=== PATIENT | female | born 1965 | race Caucasian/White ===

== ENCOUNTER 2016-12-10 07:40 | Day surgery (SDC) | payer OTHER ==
[2016-12-07 11:46] VITALS: BMI 39.5
[~2016-12-10 07:40] MED LIST: DEXAMETHASONE SOD PHOSPHATE 10 MG/ML 1 ML VIAL IV ONE; DEXAMETHASONE SOD PHOSPHATE 4 MG/ML 1 ML VIAL IV ONE; FAMOTIDINE 20 MG/2 ML VIAL IV ONE; LACTATED RINGERS 1,000 ML IV SCH; MIDAZOLAM 2 MG/2 ML VIAL IV PRN; ONDANSETRON 4 MG/2 ML VIAL IVP ONE
[2016-12-10] MEDS ORDERED: ACETAMINOPHEN TAB 500 MG TAB PO ONE (08:11)
[2016-12-10] MEDS: LACTATED RINGERS 1,000 ML IV SCH ×2 (08:12→14:52)
[2016-12-10] MEDS ORDERED: LIDOCAINE 1% 20 ML VIAL (10MG/ML) FOR IV START INTRADERMA ONE (08:12)
[2016-12-10] MEDS ORDERED: METHYLENE BLUE 10 MG/ML 1 ML VIAL MISCELLANE ONE (08:15)
[2016-12-10 08:24] LABS: Glucose,Whole Blood 115 mg/dL (75-99)
[2016-12-10 08:58] LABS: Basophils # (A) 0.1 k/uL (0-0.2); Basophils % (A) 1 %; CH 30.6; CHCM 33.1; Eosinophils # (A) 0.2 k/uL (0-0.7); Eosinophils % (A) 2 %; HCT 38.4 % (34.0-46.0); HDW 2.32; HGB 12.6 gm/dL (11.4-16.0); Luc # (Auto) 0.24; Luc % (Auto) 3; Lymphocytes # (A) 2.6 k/uL (1.0-4.8); Lymphocytes % (A) 32 %; MCH 30.3 pg (25.0-35.0); MCHC 32.7 g/dL (31.0-37.0); MCV 92.7 fL (80.0-100.0); Monocytes # (A) 0.5 k/uL (0-1.0); Monocytes % (A) 6 %; Neutrophils # (A) 4.6 k/uL (1.3-7.7); Neutrophils % (A) 57 %; RBC 4.14 m/uL (3.80-5.40); RDW 12.6 % (11.5-15.5); WBC 8.2 k/uL (3.8-10.6); WBC (Perox) 9.03
[2016-12-10 09:12] LABS: Potassium 3.8 mmol/L (3.5-5.1)
[2016-12-10] MEDS ORDERED: MIDAZOLAM 2 MG/2 ML VIAL ONE (09:23)
[2016-12-10] MEDS ORDERED: fentaNYL (PF) 50 MCG/ML 2 ML AMP ONE (09:23)
[2016-12-10] MEDS ORDERED: GLYCOPYRROLATE 0.2 MG/ML 2 ML VIAL ONE (09:23)
[2016-12-10] MEDS ORDERED: SUCCINYLCHOLINE CHLORIDE 100 MG/5 ML SYR IV ONE (09:23)
[2016-12-10] MEDS ORDERED: LIDOCAINE 1% INJ 10MG/ML (20 ML MDV) ONE (09:23)
[2016-12-10] MEDS ORDERED: LABETALOL 5 MG/ML VIAL MDV ONE (09:23)
[2016-12-10] MEDS ORDERED: DEXAMETHASONE SOD PHOS (MDV) 100 MG/10 ML VIAL ONE (09:23)
[2016-12-10] MEDS ORDERED: NEOSTIGMINE 1 MG/ML 10 ML VIAL ONE (09:23)
[2016-12-10] MEDS ORDERED: ALBUTEROL INHALER 60 PUFF/8 GM INHALER INHALATION ONE (09:23)
[2016-12-10] MEDS ORDERED: ePHEDrine 50 MG/ML 1 ML AMP ONE (09:23)
[2016-12-10] MEDS ORDERED: ROCURONIUM BROMIDE 10 MG/ML 10 ML VIAL IV ONE (09:23)
[2016-12-10] MEDS ORDERED: PROPOFOL 10 MG/ML 20 ML VIAL IV ONE (09:23)
[2016-12-10] MEDS ORDERED: cloNIDine HCL/PF 100 MCG in SODIUM CHLORIDE 0.9% 100 ML IVPB ONE (09:25)
[2016-12-10] MEDS ORDERED: SODIUM CHLORIDE 0.9% 50 ML with ceFAZolin 2,000 MG IV ONE ×2 (09:45)
[2016-12-10] MEDS ORDERED: BUPIVACAINE (PF) 0.25% 30 ML VIAL SQ ONE ×2 (10:12)
[2016-12-10] MEDS ORDERED: LIDOCAINE 1%-EPI 1:100,000 20 ML VIAL SQ ONE ×3 (10:12)
[2016-12-10] MEDS ORDERED: BACITRACIN 500 UNIT/GM OINT 28.4 GM TUBE TOPICAL ONE (11:11)
--- NOTE | 2016-12-10 11:48 | P.OP ---
Date of Procedure: 12/10/16 Preoperative Diagnosis: Deviated nasal septum Hypertrophy of bilateral inferior nasal turbinates Obstructive sleep apnea syndrome Tonsillar hyperplasia with obstruction Macroglossia the base of the tongue Postoperative Diagnosis: Same Procedure(s) Performed: Septoplasty Bilateral outfracture compression and submucosal resection of the inferior turbinates Uvulopalatopharyngoplasty Tonsillectomy CO2 laser vaporization of the base the tongue for macroglossia Anesthesia: CHESTER Surgeon: Mathew Barnes Pathology: other (Tonsils septum) Condition: stable Disposition: PACU Indications for Procedure: This patient has had persistent nasal obstruction obstructive sleep apnea syndrome and constant postnasal drainage. He is tried immunotherapy nasal sprays etc. with no improvement. She presents with persistent nasal obstruction large tonsils and a very redundant soft palate. She has failed CPAP and is intolerant to that treatment. Operative Findings: As above Description of Procedure: This patient was taken to the operative room and placed in the supine position. A general inhalation anesthetic was administered to the patient and subsequently intubated with a cuffed endotracheal tube by the department of anesthesia with a functioning IV line in place. The patient was monitored through the entire case by the department of anesthesia. Prep medication was administered Attention was paid to the nose where the septum and inferior turbinates were injected with lidocaine 1% with epinephrine 1 100,000. Approximately 10 minutes were allowed wait for full vasoconstrictive effects to take place. At this time, a caudal incision was made over the caudal portion of the left septum. This was made down to the mucoperichondrium were a mucoperichondrial flap was developed to the extent of visualization on the left. A crossover incision was made with for the mucoperichondrial flap development to the extent of visualization on the contralateral side. With use of several crosshatching incisions and removal of redundant strips of septal cartilage the septum was straightened and placed back in position. The septum was perfectly straight and the incision was closed with a 4 rapid Vicryl. A quilting stitch was used to reapproximate the septal flaps. The septum was sutured fixated to the vomer area and groove. In the incision was closed with 40 rapid Vicryl. Attention was then paid to the inferior turbinates which were entered anteriorly with the use of a microdebrider utilizing a 2 mm blade. We entered the inferior turbinates and we remove bone and submucosal elements from the inferior turbinates bilaterally. After submucosal resection was performed with removal of bone and submucosal elements ; the inferior turbinates were outfractured and compressed with use of a [employer] nasal elevator. Excellent airway was obtained.. A septal splint was then placed and fixated. A McIvor mouth gag was placed into the patients mouth with care to avoid any trauma to the lips, teeth, gums or tongue. Mouth was opened and tongue was depressed. The tonsils were grasped with an Allis forceps and brought medially bilaterally. A subcapsular dissection was performed utilizing an Evac-70 handpiece with an Arthrotec setting of 7. The tonsils were removed without incident bilaterally and the tonsillar fossae were inspected and bleeding was nonexistent and stopped spontaneously with Coblation. A Marcaine and lidocaine mixture was injected into the peritonsillar area for anesthesia postoperatively. The mouth was opened and tongue was depressed and the soft palate was measured. The uvula was extremely long and the soft palate was redundant. We removed the anterior face of the uvula and we remove the anterior inferior margin of the mucosa the soft palate. We sutured the posterior margin of the soft palate to the anterior portion of the soft palate with care to avoid any excessive soft palate resection. We measured the soft palate to prevent any velopharyngeal insufficiency. The soft palate looked excellent and after the uvulectomy and the lateral pharyngeal mucosa was removed in the usual fashion, the incision was closed with a 4 rapid Vicryl. Excellent approximation was obtained. Attention was then paid to the use of tongue which was visualized directly. With use of a sweetheart retractor the base of tongue was elevated and went to see the obstructive area of the base of tongue just above the epiglottis. We removed lymphoid tissue and tonsillar tissue at the base the tongue level with a CO2 Laser. This removal was done with care to avoid any trauma to the lingual nerve bilaterally. A significant amount of tissue was removed from the vallecula to the foramen cecum. Excellent results were obtained. The patient was taken to postanesthesia recovery in excellent condition The patient will follow up with me in one week as an outpatient.
[2016-12-10] MEDS: HYDROmorphone 1 MG/ML 1 ML SYRINGE IVP PRN ×2 (11:49→11:58)
[2016-12-10] MEDS ORDERED: PROMETHAZINE INJ 25 MG/ML 1 ML VIAL IM PRN (11:59)
[2016-12-10] MEDS ORDERED: METOCLOPRAMIDE 5 MG/ML 2 ML VIAL IVP ONE (12:15)
[2016-12-10] MEDS ORDERED: LIDOCAINE VISCOUS 2% 15 ML CUP MUCOUS MEM PRN (12:15)
[2016-12-10] MEDS: PANTOPRAZOLE 40 MG TABLET PO SCH ×2 (14:37→18:04)
[2016-12-10] MEDS ORDERED: DEXTROSE 5%-LACTATED RINGERS 1,000 ML IV SCH (15:30)
[2016-12-10] MEDS: methylPREDNISolone SOD SUCCI 125 MG/2 ML VIAL IV SCH (18:00)
[2016-12-10] MEDS: LIDOCAINE VISCOUS 300 MG/15 ML CUP MUCOUS MEM PRN ×2 (18:01→21:16)
[2016-12-10] MEDS: oxyCODONE-APAP 5-325MG 1 EACH TAB PO PRN (18:03)
[2016-12-10 18:14] VITALS: PULSE 78
[2016-12-11] MEDS: methylPREDNISolone SOD SUCCI 125 MG/2 ML VIAL IV SCH ×2 (00:04→06:27)
[2016-12-11] MEDS: oxyCODONE-APAP 5-325MG 1 EACH TAB PO PRN ×2 (00:05→06:27)
[2016-12-11] MEDS: LIDOCAINE VISCOUS 300 MG/15 ML CUP MUCOUS MEM PRN ×3 (00:13→06:32)
[2016-12-11 03:49] VITALS: BP 141/79; RESP 18; TEMP 98.1
== END 2016-12-11 07:45 | disposition home or self-care (01) ==
LOC: OR 07:40 → 6PED 11:32 → OR 12-11 07:45
PROVIDERS: ATTEND Otolaryngology
DX: J34.2 Deviated nasal septum (principal); J34.3 Hypertrophy of nasal turbinates; G47.33 Obstructive sleep apnea (adult) (pediatric); J35.1 Hypertrophy of tonsils; Q38.2 Macroglossia; R09.82 Postnasal drip; J32.9 Chronic sinusitis, unspecified; J45.909 Unspecified asthma, uncomplicated; F32.9 Major depressive disorder, single episode, unspecified; I10 Essential (primary) hypertension; E78.5 Hyperlipidemia, unspecified; E78.00 Pure hypercholesterolemia, unspecified; M79.7 Fibromyalgia; M19.90 Unspecified osteoarthritis, unspecified site; G43.909 Migraine, unspecified, not intractable, without status migrainosus; H40.9 Unspecified glaucoma; Z72.0 Tobacco use; Z79.891 Long term (current) use of opiate analgesic; Z79.2 Long term (current) use of antibiotics; Z79.52 Long term (current) use of systemic steroids; Z79.899 Other long term (current) drug therapy; Z88.8 Allergy status to other drugs, medicaments and biological substances; Z91.048 Other nonmedicinal substance allergy status
CPT/HCPCS: 30520; 30140; 42145; 41599; 88304; 80051; 85025; 88300; 88302; J2250; J2710; J2930 ×2; J2405; J2001; J3010; J1170; J0690; J1100; J0330; J2704; J0735

== ENCOUNTER → 2018-04-22 | Outpatient (CLI) | payer MEDICARE, OTHER ==
--- NOTE | 2018-04-22 14:40 | MR ---
EXAMINATION TYPE: MR knee LT wo con DATE OF EXAM: 04/22/2018 COMPARISON: Outside left knee x-ray March 31, 2018 HISTORY: Left knee pain with swelling and Limited ROM TECHNIQUE: Multiplanar, multisequence images of the knee is performed without IV contrast. FINDINGS: MEDIAL MENISCUS: Posterior horn shows increased signal signal inferiorly extending to inferior surfac e consistent with tear. Anterior horn is intact. LATERAL MENISCUS: Anterior and posterior horns are intact without tear. CRUCIATE LIGAMENTS: The anterior and posterior cruciate ligaments are intact and unremarkable. COLLATERAL LIGAMENTS: The medial collateral ligament and lateral collateral ligament complex are inta ct and unremarkable. EXTENSOR MECHANISM: Visualized quadriceps and patellar tendons are intact. EFFUSION: No significant suprapatellar joint effusion. POPLITEAL CYST: No popliteal/singh cyst. TRICOMPARTMENT SPACES: There is fairly moderate tricompartment joint space loss and spurring. CARTILAGE: There is some chondromalacia patella with thinning of articular cartilage along medial asp ect of the posterior patellar pole, areas of full-thickness defect are present medially with some carlos alberto ctive subchondral cystic change seen axial image 20. There is thinning of articular cartilage lateral into slightly greater degree medial tibiofemoral compartments without full-thickness loss. BONE MARROW SIGNAL: No focal abnormal marrow signal is appreciated. OTHER: No additional significant abnormality is appreciated. IMPRESSION: 1. Background fairly moderate tricompartment degenerative changes with full-thickness chondromalacia patella noted. 2. Full-thickness tear posterior horn of medial meniscus.
== END | disposition home or self-care (01) ==
LOC: RADMRIMAIN 13:55
PROVIDERS: ATTEND Orthopaedic Surgery
DX: S83.242A Other tear of medial meniscus, current injury, left knee, initial encounter (principal); M22.42 Chondromalacia patellae, left knee

== ENCOUNTER → 2018-05-12 | Outpatient (CLI) | payer MEDICARE, OTHER ==
--- NOTE | 2018-05-12 20:58 | CONS ---
CONSULTATION DATE OF SERVICE: 05/12/2018 52-year-old lady has been evaluated [facility] for obstructive sleep apnea- hypopnea syndrome. HISTORY OF PRESENT ILLNESS/SLEEP WAKE EVALUATION: Patient has been diagnosed with obstructive sleep apnea about 4 years ago by home sleep apnea test and after that underwent UPPP, tonsillectomy and nasal surgery for correction of respiratory abnormalities. The patient still continued to have snoring and episodes of stopped breathing during the sleep. SLEEP SCHEDULE: She sleeps from 11:00 p.m. to 9 or 10 am. FALLING ASLEEP: Has TV set in bedroom. DURING SLEEP: Usually sleeps on the side position or other positions, wakes up from sleep 2 or more times. Has episodes of nocturia. She is moving at night. She has discomfort in her legs during the night and sometimes she has a history of kicking and has history of bursitis. DURING THE DAY/SLEEP WAKE EVALUATION: In the morning she wakes up tired worries about her sleep, has problems with memory, concentration. [place] Sleepiness Scale today is 8. PAST MEDICAL HISTORY: Positive for hypertension, fibromyalgia, different types of allergy, back problems, neck pain, knee problems, sinusitis. PAST SURGICAL HISTORY: Neck surgery for disc problem in June 2016, UPPP and nasal surgery about 2015. MEDICATIONS: Lyrica, oxybutynin, Ditropan, Mobic, lisinopril, hydrochlorothiazide, Singulair, clindamycin, tramadol and eyedrops for eye infection. SOCIAL HISTORY: Positive for smoking about 1-1/2, 1 pack a day for 40 years. Alcohol consumption occasional. FAMILY HISTORY: Hypertension, heart problems, hyperlipidemia, stroke, fibromyalgia, sinus headaches, lung problems, sleep apnea, cancer, insomnia, diabetes, nasal polyps, ulcers, restless legs. REVIEW OF SYSTEMS: Awakenings from sleep, sometimes tiredness during the day. Patient may take naps if needed. PHYSICAL EXAMINATION: During physical exam, a 52-year-old lady without distress, BP 130/86, HR 68, RR 14, height 5 feet 5 inches and weight 236.6, BMI 38.6, temperature 98.3, oxygen saturation on room air 97%. Oropharynx moderately low position of soft palate, status post uvulopalatopharyngoplasty. ABDOMEN: Obese. Neck Supple, no JVD. Thyroid is not palpable. LUNGS Clear to percussion and to auscultation. Good air exchange. No wheezing or rhonchi. HEART S1, S2 regular. No murmurs, gallops, or rubs. ABDOMEN: Obese. Soft and nontender. Bowel sounds are present. No organomegaly appreciated. EXTREMITIES No clubbing or cyanosis. [employer] Awake, alert, and oriented X3. Cranial nerves 2 to 7 intact. There is no fasciculation or atrophy. noted. No focal deficits observed. IMPRESSION: 1. Snoring, multiple awakenings from sleep with nocturia. Wide neck 16-3/4 inches in circumference. Obstructive sleep apnea-hypopnea syndrome. 2. Obesity, BMI 38.63. 3. Hypertension. 4. Fibromyalgia. 5. Allergy. 6. History of rhinitis and sinusitis. 7. Back problems. 8. Neck pain. 9. Knee problems especially in the right knee at the present time. 10.Status post neck surgery in 2016. 11.Status post uvulopalatopharyngoplasty, tonsillectomy and nasal surgery in 2016. PLAN: 1. Polysomnography for evaluation of patient's breathing during sleep. 2. CPAP/BiPAP titration if sleep study confirms obstructive sleep apnea-hypopnea syndrome. 3. Preferable position during sleep on the side. 4. No driving if patient feels any sleepiness. 5. I will see patient for follow up visit to explain results of testing and following plan. Thank you very much for referring this patient for consultation. Sincerely, Nehemias Schmidt MD, PhD, FAASM Diplomat of [place] [employer] [place] [employer] [facility] [place] MMODL / IJN: [id number] /
== END | disposition home or self-care (01) ==
LOC: SLEEP 16:11
PROVIDERS: ATTEND Internal Medicine
DX: G47.33 Obstructive sleep apnea (adult) (pediatric) (principal); R35.1 Nocturia; I10 Essential (primary) hypertension; M79.7 Fibromyalgia; M25.861 Other specified joint disorders, right knee; M54.2 Cervicalgia; E66.9 Obesity, unspecified; Z79.1 Long term (current) use of non-steroidal anti-inflammatories (NSAID); Z79.891 Long term (current) use of opiate analgesic; Z79.899 Other long term (current) drug therapy; Z87.891 Personal history of nicotine dependence; Z98.890 Other specified postprocedural states; Z68.38 Body mass index [BMI] 38.0-38.9, adult; Z91.048 Other nonmedicinal substance allergy status; Z87.09 Personal history of other diseases of the respiratory system
CPT/HCPCS: 99211

== ENCOUNTER 2018-06-02 08:28 | Day surgery (SDC) | payer MEDICARE, OTHER ==
[2018-05-26 11:33] VITALS: BMI 21.7
--- NOTE | 2018-06-01 14:52 | HP ---
HISTORY AND PHYSICAL SURGERY: 06/02/2018. Shannon Borden is a 52-year-old patient seen with progressive left knee pain. Treatment options were discussed. She elected to proceed with left knee arthroscopy. Consent regarding the procedure was obtained. PAST MEDICAL HISTORY: Asthma, hypertension, hyperlipidemia, fibromyalgia, migraine headaches. PAST SURGICAL HISTORY: Carpal tunnel release, colonoscopy, hysterectomy, knee arthroscopy. MEDICATIONS: Bactroban, Ditropan, hydrochlorothiazide, lisinopril, Lyrica, meloxicam, nystatin, tramadol. ALLERGIES: ASPIRIN, MOTRIN. SOCIAL HISTORY: Patient smokes cigarettes. PHYSICAL EXAMINATION: Evaluation of the left knee: Range of motion is -2 to 125 degrees. Mild effusion. Tenderness medial joint line. Positive medial Babs's. Medial crepitus with range of motion. Ligaments stable. Hip rotation without pain. Distal neurovascular exam intact. RADIOGRAPHS: Left knee radiographs revealed moderate tricompartmental osteoarthritis. MRI of the left knee revealed medial meniscal tear with moderate osteoarthritis. IMPRESSION: 1. Internal derangement, left knee with medial meniscal tear. 2. Hypertension. 3. Fibromyalgia. 4. Asthma. 5. Hyperlipidemia. PLAN: Left knee arthroscopy with partial meniscectomy and debridement. MMODL / IJN: [id number] /
[~2018-06-02 08:28] MED LIST changes: -DEXAMETHASONE SOD PHOSPHATE 4 MG/ML 1 ML VIAL IV ONE; -FAMOTIDINE 20 MG/2 ML VIAL IV ONE; +LIDOCAINE 1% 20 ML VIAL (10MG/ML) FOR IV START INTRADERMA PRN; +SCOPOLAMINE 1.5MG/72HR PATCH TRANSDERM ONE; +ceFAZolin IN SWFI 2 GM/20 ML SYRINGE IVP ONE
[2018-06-02] MEDS ORDERED: BUPIVACAIN-EPI 0.5%-1:200,000 30 ML VIAL SQ ONE (09:36)
[2018-06-02] MEDS ORDERED: HYDROmorphone (PF) 1 MG/ML ONE (09:44)
[2018-06-02] MEDS ORDERED: LIDOCAINE 1% INJ 10MG/ML (20 ML MDV) ONE (09:44)
[2018-06-02] MEDS ORDERED: MIDAZOLAM 2 MG/2 ML VIAL ONE (09:44)
[2018-06-02] MEDS ORDERED: PROPOFOL 10 MG/ML 20 ML VIAL IV ONE (09:44)
[2018-06-02] MEDS ORDERED: fentaNYL (PF) 50 MCG/ML 2 ML AMP ONE (09:44)
[2018-06-02] MEDS ORDERED: SUCCINYLCHOLINE CHLORIDE 100 MG/5 ML SYR IV ONE (09:44)
[2018-06-02] MEDS: HYDROmorphone 0.5 MG/0.5 ML SYRINGE IVP PRN ×4 (10:43→11:16)
[2018-06-02 10:47] VITALS: TEMP 97
--- NOTE | 2018-06-02 10:50 | P.OP ---
Date of Procedure: 06/02/18 Preoperative Diagnosis: Internal derangement left knee Postoperative Diagnosis: 1. Tear medial and lateral meniscus left knee 2. Grade 4 chondromalacia medial femoral condyle left knee 3. Grade 4 chondromalacia lateral femoral condyle left knee 4. Grade 3/4 chondromalacia patellofemoral joint left knee 5. Reactive synovitis medial, lateral and suprapatellar compartments left knee Procedure(s) Performed: 1. Arthroscopic partial medial and lateral meniscectomy left knee 2. Arthroscopic microfracture medial femoral condyle left knee 3. Arthroscopic microfracture lateral femoral condyle left knee 4. Arthroscopic chondroplasty medial femoral condyle left knee 5. Arthroscopic chondroplasty lateral femoral condyle left knee 6. Arthroscopic chondroplasty patellofemoral joint left knee 7. Arthroscopic partial synovectomy medial, lateral and suprapatellar compartments left knee Anesthesia: CHESTER, local Surgeon: Naren Vann Estimated Blood Loss (ml): 10 Pathology: none sent Condition: stable Disposition: PACU Indications for Procedure: 52-year-old patient seen with progressive left knee pain. After having treatment options discussed, she elected to proceed with arthroscopy. Operative Findings: See description of procedure Description of Procedure: Patient was taken to the operative suite. Patient underwent a general anesthetic by the department of anesthesia. Patient was given preoperative antibiotics. The left lower extremity was placed in a well-padded arthroscopic leg [place]. The left leg was prepped and draped in the normal sterile orthopedic fashion. A lateral parapatellar and suprapatellar incision was made. Trochars were inserted. Arthroscopy was initiated. Suprapatellar pouch revealed diffuse thick reactive synovitis. The patellofemoral joint appeared to articulate congruently. There grade 3/4 chondromalacia of both the patella and femoral sulcus. There were osteochondral tears noted on both sides. The scope was guided into the medial gutter. No loose bodies or plica were identified. The scope was then guided into the medial compartment. A medial parapatellar incision was made. Trocar inserted followed by probe. There was complex tear involving the posterior horn and midbody medial meniscus. There is an area of grade 4 chondromalacia medial femoral condyle with some osteochondral tears along the periphery. There was thick reactive synovitis anteriorly. There was grade 3/4 chondromalacia changes of the tibial plateau. I performed a partial medial meniscectomy down to stable tissue. I performed a chondroplasty of the femoral condyle down to stable tissue. I performed a partial synovectomy decompressing the thick reactive synovitis. There was exposed bone medial femoral condyle. A microfracture was performed that area penetrating the bone. There was good bleeding at the microfracture site once it was completed. There was good stability about the residual meniscus. There was good decompression of the reactive synovitis. Scope and probe were then guided into the intercondylar notch. Cruciates were identified, probed and found to be stable. The scope and probe were then guided into lateral compartment. There was a tear involving the posterior horn and midbody lateral meniscus. There was an area of grade 4 chondral malacia lateral femoral condyle some exposed bone centrally. There was thick reactive synovitis anteriorly. I performed a partial lateral meniscectomy down to stable tissue. A chondroplasty of the lateral femoral condyle was performed on a stable tissue. I performed a partial synovectomy decompressing the reactive synovitis lateral compartment. There was an area of exposed bone along the weightbearing surface of the distal femoral condyle. A microfracture was performed that area penetrating the bone. There was good bleeding at the microfracture site for was completed. The residual meniscus was stable. The residual osteochondral surface was stable. There was good decompression of the reactive synovitis. The scope was in guided back into the suprapatellar compartment. I introduced a motorized shaver into the suprapatellar compartment. I debrided some piecemeal fragments of meniscus I encountered. I performed a chondroplasty of the patella and femoral sulcus getting down to stable osteochondral tissue. I performed a partial synovectomy decompressing the thick reactive synovitis within the super patellar compartment. The residual osteochondral surfaces were found to be stable. I took one more look on the entire knee, no residual debris. Instruments were now removed from the joint. The joint was infiltrated with .25% Marcaine. Steri-Strips were applied to the portal sites. Sterile dressings were applied. The patient was placed into a LUIS ALBERTO hose. No tourniquet was utilized. The patient was awakened, transferred to a bed and taken to recovery stable satisfactory condition.
[2018-06-02 10:56] VITALS: RESP 16
[2018-06-02] MEDS ORDERED: HYDROcodone/APAP 5-325MG 1 EACH TAB PO ONE (12:25)
[2018-06-02 12:46] VITALS: BP 126/78; PULSE 70
== END 2018-06-02 13:37 | disposition home or self-care (01) ==
LOC: OR 08:28
PROVIDERS: ATTEND Orthopaedic Surgery
DX: M23.322 Other meniscus derangements, posterior horn of medial meniscus, left knee (principal); M23.352 Other meniscus derangements, posterior horn of lateral meniscus, left knee; M65.88 Other synovitis and tenosynovitis, other site; M94.262 Chondromalacia, left knee; J45.909 Unspecified asthma, uncomplicated; I10 Essential (primary) hypertension; E78.5 Hyperlipidemia, unspecified; M79.7 Fibromyalgia; F17.210 Nicotine dependence, cigarettes, uncomplicated; Z88.6 Allergy status to analgesic agent; Z79.1 Long term (current) use of non-steroidal anti-inflammatories (NSAID); Z79.891 Long term (current) use of opiate analgesic; Z79.899 Other long term (current) drug therapy; Z90.710 Acquired absence of both cervix and uterus; Z98.1 Arthrodesis status
CPT/HCPCS: 29880; 29879; J2250; J1100; J2405; J2001; J3010; J1170 ×2; J0330; J2704; J0690

== ENCOUNTER → 2019-04-11 | Outpatient (CLI) | payer MEDICARE, OTHER ==
--- NOTE | 2019-04-11 09:51 | CT ---
EXAMINATION TYPE: CT sinus wo con DATE OF EXAM: 04/11/2019 COMPARISON: CT Sinuses October 13, 2016 HISTORY: Chronic sinusitis and left facial pressure, left nose is plugged with headaches and dysphas ia for long time, history of prior surgery. CT DLP: 578 mGycm. Automated Exposure Control for Dose Reduction was Utilized. TECHNIQUE: CT scan of the sinuses is performed without contrast, axial images are obtained, coronal r eformatted images are also reviewed. FINDINGS: The paranasal sinuses including the frontal, ethmoid, sphenoid, and maxillary sinuses bila terally are well-aerated without abnormal opacification. The ostiomeatal complex is patent on the ri ght there is significant antral mucosal thickening on the left causing occlusion coronal image 20. Ev idence of prior surgery noted. Visualized portion of mastoid air cells show no abnormal opacification. Left lens is now thinned sugg esting interval cataract surgery. IMPRESSION: The sinuses remain clear. New blockage of left ostiomeatal complex however is present cindy pite prior surgery.
--- NOTE | 2019-04-11 10:42 | FL ---
Barium swallow HISTORY: Dysphagia, chronic sinusitis and cough 67 images obtained, 2 minutes seconds fluoroscopy time Patient was given high density barium to drink. Patient was evaluated in frontal and lateral projecti ons. Initial swallow of the cervical esophagus shows postop changes in the cervical spine, there are facet arthropathy and hypertrophic spondylosis changes. Of note patient aspirated on initial swallow, ther e is laryngeal penetration present. Thoracic esophagus shows no extrinsic or intrinsic abnormality. S uspect a small sliding hiatal hernia. No gastroesophageal reflux. IMPRESSION: Mathew aspiration on initial swallow of the exam. Additional findings above.
== END | disposition home or self-care (01) ==
LOC: RADCTMAIN 08:47
PROVIDERS: ATTEND Otolaryngology
DX: R93.3 Abnormal findings on diagnostic imaging of other parts of digestive tract (principal); J34.89 Other specified disorders of nose and nasal sinuses; R13.10 Dysphagia, unspecified; R05 Cough; J32.9 Chronic sinusitis, unspecified; Z98.890 Other specified postprocedural states
CPT/HCPCS: 70486; 74220

== ENCOUNTER → 2019-04-17 | Outpatient (CLI) | payer MEDICARE, OTHER ==
--- NOTE | 2019-04-17 14:00 | FL ---
MODIFIED SWALLOW / DEGLUTITION STUDY DATE OF EXAM: 04/17/2019 CLINICAL HISTORY: 53-year-old female recent ACDF with sensation of solid food sticking in the throat. Dysphagia. TECHNIQUE: Deglutition study is performed utilizing thin liquid barium, honey and nectar thick liqui d barium, barium thick applesauce, and barium coated cracker. Total fluoroscopy time: 1 minute 9 seconds. Total images: None. Real-time fluoroscopy support was provided to speech pathology. COMPARISON: None. FINDINGS: The oral and pharyngeal phases show satisfactory initiation and propagation with all modalities teste d. Normal mastication is seen with solid modalities tested. Trace transient penetration is noted wi th thin and nectar liquid consistencies. Otherwise, there is no evidence of other penetration or aspi ration with any modality tested. No significant pharyngeal residue was appreciated. Postsurgical betsy nges of C4-C5 and C5-C6 ACDF. No prevertebral soft tissue swelling. IMPRESSION: Trace transient penetration with thin and nectar liquids. No other penetration or aspiration seen. Please refer to speech therapist notes for further details if necessary.
== END | disposition home or self-care (01) ==
LOC: RADFLMAIN 12:41
PROVIDERS: ATTEND Family Medicine
DX: R13.19 Other dysphagia (principal)
CPT/HCPCS: 74230

== ENCOUNTER → 2019-06-28 | Outpatient (CLI) | payer MEDICARE, OTHER | END | disposition home or self-care (01) | LOC: LABPAT 06-19 16:43 | PROVIDERS: ATTEND Orthopaedic Surgery | DX: Z01.812 Encounter for preprocedural laboratory examination (principal) | CPT/HCPCS: 87070 ==

== ENCOUNTER 2019-08-07 13:37 | Day surgery (SDC) | payer MEDICARE, OTHER ==
--- NOTE | 2019-08-06 17:47 | HP ---
HISTORY AND PHYSICAL REASON FOR ADMISSION: Surgery scheduled for 08/07/2019 HISTORY OF PRESENT ILLNESS: Shannon Borden is a 53-year-old patient seen with symptomatic left knee osteoarthritis. We discussed treatment options. She elected to proceed with total knee arthroplasty. Consent regarding the procedure was obtained. Full preoperative medical clearance was provided by Dr. Larkin and preoperative cardiac clearance was provided by Dr. Manzano. PAST MEDICAL HISTORY: Hypertension, cardiovascular disease, hyperlipidemia, COPD, depression. PAST SURGICAL HISTORY: Colonoscopy, D and C, hysterectomy, knee arthroscopy, rhinoplasty, cervical laminectomy, carpal tunnel release. MEDICATIONS: Fioricet, hydrochlorothiazide, lisinopril, Lyrica, meloxicam, nystatin, [place] Ventolin inhaler. ALLERGIES: ASPIRIN, MOTRIN. SOCIAL HISTORY: Smokes cigarettes daily. PHYSICAL EXAMINATION: Evaluation of the left knee: Range of motion is -4/5-115. Mild effusion. Tenderness medial joint line. Crepitus medial patellofemoral compartments range of motion. Pain with patellofemoral compression. Ligaments are stable. Hip rotation without pain. Distal neurovascular exam intact. RADIOGRAPHS: Radiographs of the left knee revealed moderate to severe medial and mild patellofemoral compartment osteoarthritis. IMPRESSION: 1. Left knee osteoarthritis. 2. Hypertension. 3. Fibromyalgia. 4. Chronic opioid use. 5. Tobacco use. PLAN: Left total knee arthroplasty. Surgery scheduled for 08/07/2019. MMODL / DREWN: [id number] /
[~2019-08-07 13:37] MED LIST changes: +ACETAMINOPHEN TAB 500 MG TAB PO ONE; -DEXAMETHASONE SOD PHOSPHATE 10 MG/ML 1 ML VIAL IV ONE; +HYDROmorphone 0.5 MG/0.5 ML SYRINGE IVP PRN; -LACTATED RINGERS 1,000 ML IV SCH; +MELOXICAM 7.5 MG TAB PO ONE; +METOCLOPRAMIDE 5 MG/ML 2 ML VIAL IVP PRN; +ROPIVACAINE 246.25 MG, EPINEPHrine 0.5 MG, KETOROLAC 30 MG, cloNIDine HCL/PF 80 MCG, WA... MISCELLANE ONE; -SCOPOLAMINE 1.5MG/72HR PATCH TRANSDERM ONE; +TRANEXAMIC ACID 1,000 MG in SODIUM CHLORIDE 0.9% 100 ML IVPB ONE; -ceFAZolin IN SWFI 2 GM/20 ML SYRINGE IVP ONE; +fentaNYL (PF) 50 MCG/ML 2 ML AMP IVP PRN
[2019-08-07] MEDS ORDERED: LIDOCAINE 1% 20 ML VIAL (10MG/ML) FOR IV START INTRADERMA ONE (14:12)
[2019-08-07] MEDS: LACTATED RINGERS 1,000 ML IV SCH ×2 (14:12→19:27)
[2019-08-07] MEDS ORDERED: PROPOFOL 10 MG/ML 20 ML VIAL IV ONE (15:16)
[2019-08-07] MEDS ORDERED: MIDAZOLAM 2 MG/2 ML VIAL ONE (15:16)
[2019-08-07] MEDS ORDERED: LIDOCAINE 1% INJ 10MG/ML (20 ML MDV) ONE (15:16)
[2019-08-07] MEDS ORDERED: fentaNYL (PF) 50 MCG/ML 2 ML AMP ONE (15:16)
[2019-08-07] MEDS ORDERED: PHENYLEPHRINE-0.9% NACL SYG 1 MG/10 ML SYRINGE ONE (15:16)
[2019-08-07] MEDS ORDERED: ePHEDrine SULFATE/0.9% NACL/PF 50 MG/5 ML SYRINGE IV ONE (15:16)
[2019-08-07] MEDS ORDERED: ceFAZolin 3,000 MG in SODIUM CHLORIDE 0.9% IRRIGATIO 3,000 ML IRRIGATION ONE (15:19)
[2019-08-07] MEDS ORDERED: LACTATED RINGERS 1,000 ML IV ONE (15:45)
[2019-08-07] MEDS ORDERED: ONDANSETRON 4 MG/2 ML VIAL IVP PRN (17:02)
[2019-08-07] MEDS ORDERED: HYDROmorphone 1 MG/ML 1 ML SYRINGE IVP PRN (17:02)
[2019-08-07] MEDS ORDERED: HYDROcodone/APAP 5-325MG 1 EACH TAB PO PRN (17:02)
[2019-08-07] MEDS ORDERED: HYDROmorphone 0.5 MG/0.5 ML SYRINGE IVP PRN ×2 (17:02)
[2019-08-07] MEDS ORDERED: NALOXONE 0.4 MG/ML 1 ML VIAL IV PRN (17:02)
--- NOTE | 2019-08-07 17:02 | P.OP ---
Date of Procedure: 08/07/19 Preoperative Diagnosis: Left knee osteoarthritis Postoperative Diagnosis: Left knee osteoarthritis Procedure(s) Performed: Left total knee arthroplasty Implants: 1. Depuy attune size 6 narrow left cruciate-retaining cemented femur 2. Depuy attune size 5 fixed bearing cemented tibial baseplate 3. Depuy attune size 6 fixed bearing cruciate retaining 5 mm polyethylene tibial insert 4. Depuy attune 38 mm all polyethylene cemented patella Anesthesia: regional (Adductor canal catheter), local, spinal Surgeon: Naren Vann Mail Clerk #1: Torrey Davis Estimated Blood Loss (ml): 25 Pathology: other (Bone) Condition: stable Disposition: PACU Indications for Procedure: 53-year-old patient seen with symptomatic left knee osteoarthritis. After treatment options were discussed with her, she elected to proceed with total knee arthroplasty. Operative Findings: See description of procedure Description of Procedure: Patient was taken to the operative suite after having an adductor canal catheter placed by the department of anesthesia for postoperative pain management. Patient underwent a spinal anesthetic by the department of anesthesia. Patient was given preoperative IV intake antibiotics and TXA. A well-padded tourniquet was placed about the left lower extremity. The lower extremity was then prepped and draped in the normal sterile orthopedic fashion. The extremity was elevated, a tourniquet was insufflated to 300. A standard anterior incision was made sharply through skin. Dissection was taken down through the subcutaneous soft tissues down to the extensor mechanism. A medial arthrotomy was performed, patella was everted and knee was flexed. There was advanced osteoarthritis noted. I introduced my distal intramedullary femoral drill. I then introduced the distal femoral cutting jig. Daniel FISCHER secured the cutting jig with 2 pins. I held retractors in position while Daniel FISCHER performed the distal femoral resection through the guide area we now removed her distal femoral cutting guide. We now placed our 4-in-1 femoral cutting block and positioned and it was secured with 2 pins by Daniel FISCHER while I held the block in position. The distal femoral finishing was now completed. A proximal tibial cutting guide was positioned. I held the guide in the appropriate position with both hands well Daniel FISCHER inserted stabilizing pins into the guide. Proximal tibial cut was made. We now placed a trial femoral component into position, along with an appropriate size tibial tray and insert. We now took the knee through range of motion and had full extension good flexion and good overall soft tissue balance noted. The patella was everted and stabilized with 2 towel clips held by Daniel FISCHER while I performed a flush with patellar quad tendon utilizing a fresh sawblade. We templated the patella, appropriate drill holes were made. An appropriate trial patella was positioned, knee was taken through full range of motion with the patella tracking very nicely. The trial patella was removed. Drill holes were made through the femoral component. All trial components were removed after marking off the appropriate rotation of the tibia. Retractors were now positioned along the proximal tibia. An appropriate keel punch was made with the appropriate size tibial guide by myself on Daniel FISCHER assisted by holding retractors. At this point appropriate size implants were chosen and opened. The joint was irrigated copiously with pulse lavage mechanical irrigation. The posterior capsule was infiltrated with local analgesic. The wound was irrigated with pulse lavage mechanical irrigation. We mixed antibiotic methylmethacrylate. We placed the knee into flexion. We placed multiple retractors assisted by Daniel FISCHER to expose the proximal tibia. Once the methyl methacrylate was ready, the tibial component was cemented into place removing any excess methylmethacrylate form by both myself and Daniel FISCHER. The femoral component was cemented into place removing the removing any excess methylmethacrylate performed by both myself and Daniel FISCHER. We then inserted the appropriate size polyethylene tibial insert. We made sure that it was locked into position. We took the knee into full extension, and then back in a flexion making sure we had removed any excess methylmethacrylate. The patellar component was then cemented down and secured with clamp. Excess methylmethacrylate removed. We kept the knee in full extension, patellar clamp in position until methylmethacrylate had hardened. Once it had hardened the patellar clamp was removed. The knee was taken through full range of motion. The patella tracked nicely. There was good soft tissue balancing. The tourniquet was now released. Additional hemostasis was achieved via electrocautery. A second gram of TXA was given. The wound again was irrigated with pulse lavage mechanical irrigation. The superficial soft tissues were infiltrated local analgesic. The extensor mechanism was repaired with Vicryl. We checked the repair with range of motion and it was stable. The subcutaneous soft tissues were repaired with Vicryl in layers. The skin was approximated with pernio/Dermabond. Sterile dressings were applied followed by loose web roll and Kenneth bandage. The patient was transferred to a bed, and taken to recovery in stable and satisfactory condition. Daniel FISCHER assisted with this complex procedure.
[2019-08-07] MEDS ORDERED: ROPIVACAINE 0.2%-NS ON-Q PUMP 1,090 MG, EMPTY PAIN BALL 1 EACH MISCELLANE PRN (17:17)
[2019-08-07 17:50] LABS: Glucose,Whole Blood 104 mg/dL (75-99)
--- NOTE | 2019-08-07 17:53 | XR ---
EXAMINATION TYPE: XR knee limited LT DATE OF EXAM: 08/07/2019 COMPARISON: NONE HISTORY: Postop TECHNIQUE: 2 views FINDINGS: There is left knee prosthesis. Components are in anatomic position. IMPRESSION: No complicating process seen.
[2019-08-07] MEDS ORDERED: ONDANSETRON 4 MG/2 ML VIAL IVP ONE (17:55)
[2019-08-07] MEDS ORDERED: METOCLOPRAMIDE 5 MG/ML 2 ML VIAL IVP ONE (17:55)
--- NOTE | 2019-08-07 19:33 | P.ANPRN ---
Procedure Note - Anesthesia - Nerve Block Performed Left Adductor Canal Infusion Time Out Performed: Yes Date of Procedure: 08/07/19 Procedure Start Time: 14:17 Procedure Stop Time: 14:39 Location of Patient Procedure: PreOp Indication: Acute Post-Operative Pain, Requested by Surgeon Sedation Type: Sedate with meaningful contact maintained Preparation: Sterile Prep, Sterile Dressing Position: Supine Catheter: Indwelling Needle Types: Pajunk Needle Gauge: 21 Ultrasound used to visualize needle placement: Yes Ultrasound used to observe medication spread: Yes Blood Aspirated: No Pain Paresthesia on Injection Noted: No Resistance on Injection: Normal Image Stored and Saved: Yes Events: Uneventful and Well Tolerated (ropi .5% 20cc)
[2019-08-07] MEDS ORDERED: SENNOSIDES-DOCUSATE SODIUM 1 EACH TAB PO SCH (21:00)
[2019-08-07 23:05] VITALS: RESP 16
[2019-08-07 23:55] VITALS: BMI 38.8
[2019-08-08] MEDS: LACTATED RINGERS 1,000 ML IV SCH ×2 (05:15→05:30)
[2019-08-08 06:49] LABS: Basophils # (A) 0.1 k/uL (0-0.2); Basophils % (A) 1 %; Eosinophils # (A) 0.1 k/uL (0-0.7); Eosinophils % (A) 1 %; HCT 34.4 % (34.0-46.0); HGB 11.1 gm/dL (11.4-16.0); Lymphocytes # (A) 1.5 k/uL (1.0-4.8); Lymphocytes % (A) 18 %; MCH 30.5 pg (25.0-35.0); MCHC 32.2 g/dL (31.0-37.0); MCV 94.9 fL (80.0-100.0); Mean Platelet Volume 6.9; Monocytes # (A) 0.5 k/uL (0-1.0); Monocytes % (A) 6 %; Neutrophils % (A) 72 %; Platelet Count 282 k/uL (150-450); RBC 3.62 m/uL (3.80-5.40); RDW 12.7 % (11.5-15.5); WBC 8.3 k/uL (3.8-10.6)
--- NOTE | 2019-08-08 07:38 | P.PN ---
Progress Note - Text 08/08 655am 53-year-old female status post total knee replacement by Dr. Vann. Patient has an On-Q pump for postop pain control with the solution running at 8 mL an hour. She has a VAS of 5 but most for pain is located posteriorly. I did explain to the patient that the pain pump worked better for anterior Knee pain and did not cover the posterior portion of the knee. Plan to continue On-Q pump infusion
[2019-08-08 08:05] VITALS: BP 162/92; PULSE 93; TEMP 100.2
[2019-08-08] MEDS: HYDROcodone/APAP 7.5-325MG 1 EACH TAB PO PRN ×2 (08:06→14:11)
[2019-08-08] MEDS ORDERED: ENOXAPARIN 30 MG/0.3 ML SYRINGE SQ SCH (09:00)
[2019-08-08] MEDS ORDERED: MELOXICAM 7.5 MG TAB PO SCH (09:00)
--- NOTE | 2019-08-08 11:03 | P.PN ---
Subjective Progress Note Date: 08/08/19 Principal diagnosis: Status post left total knee arthroplasty Patient evaluated at bedside, she is resting comfortably. She's ambulated with therapy. She is tolerating the pain. Denies chest pain or shortness of breath. Objective - Vital Signs Vital signs: Vital Signs Temp 100.2 F H 08/08/19 07:05 Pulse 93 08/08/19 07:05 Resp 16 08/08/19 07:05 BP 162/92 08/08/19 07:05 Pulse Ox 95 08/08/19 07:05 Intake & Output 08/07/19 08/08/19 08/08/19 18:59 06:59 18:59 Intake Total 1950 300 180 Output Total 25 Balance 1925 300 180 Intake: IV 1950 300 Oral 180 Output: Estimated Blood Loss 25 Other: # Voids 1 - Exam Left lower extremity: Incision is clean, dry, and intact. The exofin fusion tape is in good condition. There is minimal soft tissue swelling and ecchymosis surrounding the medial and lateral aspects of the incision. Calf is soft, no tenderness with palpation. Plantar flexion, dorsiflexion, EHL, FHL are intact. Sensory exam to light touch throughout the extremity is intact, dorsal pedis pulses 2+. - Labs CBC & Chem 7: 08/08/19 06:12 Labs: Abnormal Lab Results - Last 24 Hours (Table) 08/07/19 08/08/19 Range/Units 17:49 06:12 RBC 3.62 L (3.80-5.40) m/uL Hgb 11.1 L (11.4-16.0) gm/dL POC Glucose (mg/dL) 104 H (75-99) mg/dL Assessment and Plan Plan: Assessment: Postoperative day #1 status post left total knee arthroplasty Plan: Pain control, patient does see a pain management doctor, she is alert he been prescribed medication GI and DVT prophylaxis, aspirin 81 mg twice a day Wound care instructions discussed Home physical therapy and nursing after discharge Medical recommendations Plan for discharge home today Time with Patient: Less than 30
--- NOTE | 2019-08-08 11:04 | P.DS ---
Providers Date of admission: 08/07/2019 Expected date of discharge: 08/08/19 Attending physician: Naren Vann Consults: 08/07/19 17:02 Consult Physician Routine Consulting Provider: Herman Kumar Consult Reason/Comments: Medical management Do you want consulting provider notified?: Yes Primary care physician: [facility] Course: Date of admission: 08/07/2019 Date of discharge: 08/08/2019 Admission diagnosis: Status post left total knee arthroplasty Discharge diagnosis: Same Attending physician: Dr. Vann Surgical procedures: Left total knee arthroplasty Brief history: Patient is a 53-year-old female with a history of progressive primary left knee osteoarthritis. At this point patient has failed conservative treatment measures and has opted to proceed with a elective left total knee arthroplasty. Hospital course: Details of patient's surgery can be found in operative report. Patient tolerated the procedure well and was subsequently transported to orthopedic floor. Patient's orthopeidc and medical care was provided daily. Patient had daily laboratory tests performed for evaluation of overall blood counts. Patient had daily physical therapy to include strengthening range of motion as well as education with walker ambulation. Patient had daily CPM usage as part of their physical therapy program. Patient was treated with Lovenox for their postoperative DVT prophylaxis during their inpatient stay. Patient was noted to have a relatively uneventful postoperative course. Patient reported satisfactory pain control with oral pain medications by postoperative day 0. Patient showed satisfactory progress with physical therapy. Patient moved steadily through the program and had no difficulty meeting the goals by postoperative day 1. Given patient's otherwise satisfactory course and having met physical therapy goals, plan is to discharge patient to home on postoperative day 1. Discharge condition/disposition: Patient will be discharged home in stable condition. Discharge medications: Instructions are given on resumption of patient's normal daily medications per primary care recommendation, in addition patient will be prescribed aspirin 81 mg. Discharge instructions: 1. Wound care and infection precautions, keep incision dry and covered while showering, no lotions, creams, moisturizers. No soaking, tubs, pools, hottubs. Do not scrub over the incision. 2. Weight-bear as tolerated with walker / cane until follow-up. 3. Ice and elevate when necessary. Do not exceed 20 minutes per hour with ice pack. 4. Utilize compression sleeve until seen at first follow up appointment. 5. Visiting nursing care. 6. Home physical therapy including home CPM. 7. Pain meds and anticoagulants per prescription. 8. Pain medication has potential to cause constipation. Increase oral fluid and fiber intake. Contact primary care provider if you have not had a bowel movement within 48 hours after discharge 9. No anti-inflammatory medication until discussed at first post operative visit, this including Motrin, Aleve, Mobic, Diclofenac. 10. Follow up in office at 2 weeks postop with Daniel Davis PA-C 11. Follow up with your primary care doctor 7-10 days after discharge. 12. Contact [facility] with any questions, . Procedures: Left total knee arthroplasty Patient Condition at Discharge: Good Plan - Discharge Summary Discharge Rx Participant: No New Discharge Prescriptions: New Aspirin [Adult Low Dose Aspirin EC] 81 mg PO BID #60 tablet.dr Foy Action Pregabalin [Lyrica] 100 mg PO BID Montelukast [Singulair] 10 mg PO QAM Hydrochlorothiazide 25 mg PO DAILY Albuterol Inhaler [Ventolin Hfa Inhaler] 1 - 2 puff INHALATION Q6HR PRN PRN Reason: Wheezing traMADol HCl [Ultram] 50 mg PO DAILY Meloxicam [Mobic] 15 mg PO DAILY Nystatin 100,000 Unit/gm Powd [Mycostatin Powder] 1 applic TOPICAL DAILY Mupirocin 2% Oint [Bactroban 2% Oint] 1 applic TOPICAL BID PRN PRN Reason: nasal irritation HYDROcodone/APAP 5-325MG [[place] 5-325] 1 tab PO DAILY PRN PRN Reason: Pain Azelastine HCl [Astepro] 1 spray NASAL BID PRN PRN Reason: allergies Cetirizine HCl [Zyrtec] 10 mg PO HS Triamcinolone Acetonide [Nasacort] 1 spray EA NOSTRIL DAILY Olopatadine HCl [Pataday] 1 drop BOTH EYES DAILY Butalb/APAP/Caff 50-325-40Mg [Fioricet 50-325-40] 1 tab PO Q4H PRN PRN Reason: Migraine Headache Irbesartan [Avapro] 75 mg PO DAILY Fesoterodine Fumarate [Toviaz] 8 mg PO DAILY Cyclobenzaprine [Flexeril] 5 mg PO DAILY PRN PRN Reason: Pain Nicotine Patch (Unknown Dose) 1 tab PO DAILY Mucinex Cough And Chest 1 tab PO TID Calcium/Magnesium/Zinc [Ryrrbeq-Ofvhnodok-Xbee Tablet] 1 each PO DAILY Allergy Shots 1 dose SQ DIRECTED Discharge Medication List Hydrochlorothiazide 25 mg PO DAILY 02/18/15 [History] Montelukast [Singulair] 10 mg PO QAM 02/18/15 [History] Pregabalin [Lyrica] 100 mg PO BID 02/18/15 [History] Albuterol Inhaler [Ventolin Hfa Inhaler] 1 - 2 puff INHALATION Q6HR PRN 12/07/16 [History] Meloxicam [Mobic] 15 mg PO DAILY 12/07/16 [History] traMADol HCl [Ultram] 50 mg PO DAILY 12/07/16 [History] Azelastine HCl [Astepro] 1 spray NASAL BID PRN 05/26/18 [History] Cetirizine HCl [Zyrtec] 10 mg PO HS 05/26/18 [History] HYDROcodone/APAP 5-325MG [[place] 5-325] 1 tab PO DAILY PRN 05/26/18 [History] Mupirocin 2% Oint [Bactroban 2% Oint] 1 applic TOPICAL BID PRN 05/26/18 [History] Nystatin 100,000 Unit/gm Powd [Mycostatin Powder] 1 applic TOPICAL DAILY 05/26/18 [History] Olopatadine HCl [Pataday] 1 drop BOTH EYES DAILY 05/26/18 [History] Triamcinolone Acetonide [Nasacort] 1 spray EA NOSTRIL DAILY 05/26/18 [History] Allergy Shots 1 dose SQ DIRECTED 08/03/19 [History] Butalb/APAP/Caff 50-325-40Mg [Fioricet 50-325-40] 1 tab PO Q4H PRN 08/03/19 [History] Calcium/Magnesium/Zinc [Ehzogmh-Rgsrmojii-Zlgi Tablet] 1 each PO DAILY 08/03/19 [History] Cyclobenzaprine [Flexeril] 5 mg PO DAILY PRN 08/03/19 [History] Fesoterodine Fumarate [Toviaz] 8 mg PO DAILY 08/03/19 [History] Irbesartan [Avapro] 75 mg PO DAILY 08/03/19 [History] Mucinex Cough And Chest 1 tab PO TID 08/03/19 [History] Nicotine Patch (Unknown Dose) 1 tab PO DAILY 08/03/19 [History] Aspirin [Adult Low Dose Aspirin EC] 81 mg PO BID #60 tablet. 08/08/19 [Rx] Follow up Appointment(s)/Referral(s): [facility] [NON-STAFF] - As Needed (Continuous Passive Motion knee machine) [facility], [NON-STAFF] - As Needed Torrey Davis PAC [PHYSICIAN OIL WELL SHOOTER] - 2 Weeks Activity/Diet/Wound Care/Special Instructions: Orthopedic Discharge Instructions: 1. Wound care and infection precautions, keep incision dry and covered while showering, no lotions, creams, moisturizers. No soaking, pools, hot tubs. Do not scrub over incision. 2. Weight-bear as tolerated with walker / cane until follow-up. 3. Ice and elevate when necessary. Do not exceed 20 minutes per hour with ice pack. 4. Utilize compression sleeve until seen at first follow up appointment. 5. Pain meds and anticoagulants per prescription. 6. Pain medication has potential to cause constipation. Increase oral fluid and fiber intake. Contact primary care provider if you have not had a bowel movement within 48 hours after discharge. 7. No anti-inflammatory medication until discussed at first post operative visit, this including Motrin, Aleve, Mobic, Diclofenac. 8. Follow up in office at 2 weeks postop with Daniel Davis PA-C 9. Follow up with your primary care doctor 7-10 days after discharge. 10. Contact [facility] with any questions, . Discharge Disposition: HOME WITH HOME HEALTH SERVICES
[2019-08-08] MEDS ORDERED: ALBUTEROL NEBULIZED 2.5 MG/3 ML INHALATION PRN (11:11)
[2019-08-08] MEDS ORDERED: CYCLOBENZAPRINE 5 MG TAB PO PRN (11:11)
[2019-08-08] MEDS ORDERED: AZELASTINE 137MCG/SPRAY NASAL PRN (11:11)
[2019-08-08] MEDS ORDERED: ACETAMINOPHEN TAB 500 MG TAB PO PRN (11:14)
[2019-08-08] MEDS ORDERED: LOSARTAN 25 MG TAB PO SCH (11:15)
[2019-08-08] MEDS ORDERED: MONTELUKAST 10 MG TAB PO SCH (11:15)
[2019-08-08] MEDS ORDERED: PREGABALIN 100 MG CAP PO SCH (11:15)
[2019-08-08] MEDS ORDERED: HYDROCHLOROTHIAZIDE 25 MG TAB PO SCH (11:15)
[2019-08-08] MEDS ORDERED: LORATADINE 10 MG TAB PO SCH (21:00)
== END 2019-08-08 15:16 | disposition home health service (06) ==
LOC: OR 13:37 → 4SSUR 18:32 → OR 08-08 15:16
PROVIDERS: ATTEND Orthopaedic Surgery
DX: M17.12 Unilateral primary osteoarthritis, left knee (principal); E78.5 Hyperlipidemia, unspecified; E66.9 Obesity, unspecified; Z68.38 Body mass index [BMI] 38.0-38.9, adult; I10 Essential (primary) hypertension; R73.03 Prediabetes; F41.9 Anxiety disorder, unspecified; G47.33 Obstructive sleep apnea (adult) (pediatric); M79.7 Fibromyalgia; I25.10 Atherosclerotic heart disease of native coronary artery without angina pectoris; J44.9 Chronic obstructive pulmonary disease, unspecified; F32.9 Major depressive disorder, single episode, unspecified; M51.36 Other intervertebral disc degeneration, lumbar region; F17.210 Nicotine dependence, cigarettes, uncomplicated; Z90.710 Acquired absence of both cervix and uterus; Z82.49 Family history of ischemic heart disease and other diseases of the circulatory system; Z82.3 Family history of stroke; Z80.3 Family history of malignant neoplasm of breast; Z79.1 Long term (current) use of non-steroidal anti-inflammatories (NSAID); Z79.891 Long term (current) use of opiate analgesic; Z79.899 Other long term (current) drug therapy; Z88.6 Allergy status to analgesic agent; Z91.018 Allergy to other foods; Z91.013 Allergy to seafood; Z88.8 Allergy status to other drugs, medicaments and biological substances; Z91.048 Other nonmedicinal substance allergy status
CPT/HCPCS: 97161; 85025; 88300; 73560; 27447; C1776; C1713; J2250; J0171; J2765; J0690 ×3; J2405; J2001; J3010; J1885; J1650; J2795; J2370; J2704; J0735

== ENCOUNTER → 2020-04-11 | Outpatient (CLI) | payer MEDICARE, OTHER ==
--- NOTE | 2020-04-11 15:59 | MR ---
EXAMINATION TYPE: MR shoulder LT wo con DATE OF EXAM: 04/11/2020 COMPARISON: None HISTORY: 54-year-old female M25.512 Pain in left shoulder, loss of range of motion TECHNIQUE: Multiplanar, multisequence imaging of the left shoulder is performed without contrast. FINDINGS: Mild tenosynovial fluid along the bicipital groove. Long head biceps tendon appears intact and approp riately situated. Some minimal intrasubstance change within the subscapularis tendon which appears mildly heterogeneous and thickened. Moderate degenerative joint space narrowing with marginal spurring at the acromioclavicular joint. No significant mass effect onto the underlying cuff. Mild to moderate effusion within the subacromial/subdeltoid bursa extending anteriorly. Heterogeneous thickening of the supraspinatus tendon with some bursal sided fraying. No discrete tear is identified. The infraspinatus tendon is intact. No atrophy of the rotator cuff musculature. Evaluation of the glenohumeral joint shows multiple paralabral cysts along the posterior-superior gle noid extending from behind the biceps anchor to the mid posterior labrum spanning 2.3 cm and measurin g up to 1.0 cm wide with some intraosseous extension to the superior glenoid, refer to coronal image 14. No significant glenohumeral joint effusion. Overall glenohumeral joint articular cartilage appears ma intained. No Hill-Sachs deformity or os acromiale. Patchy red marrow can be seen with anemia, obesity, smoking, chronic disease. IMPRESSION: 1. Supraspinatus and subscapularis tendinosis. Bursal sided fraying of the supraspinatus tendon. Smal l intrasubstance tear of the subscapularis tendon. No high-grade partial or full-thickness rotator cu ff tear. 2. Large labral tear extending 90 degrees back from behind the biceps anchor with a corresponding str ing of small paralabral cysts. 3. Moderate AC joint OA. 4. Ppezo-ut-goertgsl subacromial/subdeltoid bursal effusion suggests a mild bursitis.
== END | disposition home or self-care (01) ==
LOC: RADMRIMAIN 13:54
PROVIDERS: ATTEND Orthopaedic Surgery
DX: M75.82 Other shoulder lesions, left shoulder (principal); S46.912A Strain of unspecified muscle, fascia and tendon at shoulder and upper arm level, left arm, initial encounter; S43.492A Other sprain of left shoulder joint, initial encounter; M19.012 Primary osteoarthritis, left shoulder

== ENCOUNTER → 2020-05-09 | Outpatient (CLI) | payer MEDICARE, OTHER ==
[2020-05-09 15:14] LABS: Basophils # (A) 0.1 k/uL (0-0.2); Basophils % (A) 1 %; Eosinophils # (A) 0.2 k/uL (0-0.7); Eosinophils % (A) 2 %; HCT 40.4 % (34.0-46.0); HGB 13.3 gm/dL (11.4-16.0); Lymphocytes # (A) 2.4 k/uL (1.0-4.8); Lymphocytes % (A) 30 %; MCH 31.3 pg (25.0-35.0); MCHC 32.9 g/dL (31.0-37.0); MCV 95.1 fL (80.0-100.0); Mean Platelet Volume 7.7; Monocytes # (A) 0.4 k/uL (0-1.0); Monocytes % (A) 5 %; Neutrophils # (A) 4.6 k/uL (1.3-7.7); Neutrophils % (A) 59 %; Platelet Count 331 k/uL (150-450); RBC 4.25 m/uL (3.80-5.40); RDW 12.7 % (11.5-15.5); WBC 7.8 k/uL (3.8-10.6)
[2020-05-09 15:22] LABS: Potassium 4.3 mmol/L (3.5-5.1)
== END | disposition home or self-care (01) ==
LOC: LABPAT 14:05
PROVIDERS: ATTEND Orthopaedic Surgery
DX: Z01.818 Encounter for other preprocedural examination (principal); M75.42 Impingement syndrome of left shoulder
CPT/HCPCS: 36415; 80051; 85025

== ENCOUNTER 2020-05-22 07:36 | Day surgery (SDC) | payer MEDICARE, OTHER ==
[2020-05-20 09:46] VITALS: BMI 39.5
--- NOTE | 2020-05-21 15:03 | HP ---
HISTORY AND PHYSICAL DATE OF SURGERY: 05/22/2020 Shannon Borden is a 54-year-old patient seen with progressive left shoulder pain. We discussed options for treatment. She elected to proceed with arthroscopy. Consent was obtained. PAST MEDICAL HISTORY: Asthma, hypertension, depression, fibromyalgia. PAST SURGICAL HISTORY: Carpal tunnel release, hysterectomy, knee arthroscopy, rhinoplasty, cervical laminectomy, left total knee arthroplasty. DAILY MEDICATIONS: Hydrochlorothiazide, lisinopril, Lyrica, tramadol, Ventolin, ibuprofen. ALLERGIES: ASPIRIN. SOCIAL HISTORY: Smokes 3/4 pack cigarettes daily. PHYSICAL EVALUATION OF THE LEFT SHOULDER: Flexion 110 degrees, abduction 100 degrees, external rotation is 50 degrees with pain and weakness. There is tenderness along the anterolateral acromion and rotator cuff insertion site. Impingement is positive at 90, drop-arm sign is positive. Distal neurovascular exam is intact. LEFT SHOULDER RADIOGRAPHS: Revealed a type 2 anterior acromion as well as evidence for acromioclavicular joint osteoarthritis. A left shoulder MRI revealed a partial rotator cuff tendon tear as well as a large labral tear. IMPRESSION: 1. Left shoulder impingement with partial rotator cuff tendon tear. 2. Left shoulder labral tear. 3. Left shoulder acromioclavicular joint osteoarthritis. 4. Hypertension. 5. Tobacco use. PLAN: Left shoulder arthroscopy with subacromial decompression, arthroscopic rotator cuff repair, labral repair versus debridement. MMODL / IJN: [id number] /
[~2020-05-22 07:36] MED LIST changes: -ACETAMINOPHEN TAB 500 MG TAB PO ONE; +DEXAMETHASONE SOD PHOSPHATE 10 MG/ML 1 ML VIAL IV ONE; +LACTATED RINGERS 1,000 ML IV SCH; -LIDOCAINE 1% 20 ML VIAL (10MG/ML) FOR IV START INTRADERMA PRN; -MELOXICAM 7.5 MG TAB PO ONE; -METOCLOPRAMIDE 5 MG/ML 2 ML VIAL IVP PRN; -ROPIVACAINE 246.25 MG, EPINEPHrine 0.5 MG, KETOROLAC 30 MG, cloNIDine HCL/PF 80 MCG, WA... MISCELLANE ONE; -TRANEXAMIC ACID 1,000 MG in SODIUM CHLORIDE 0.9% 100 ML IVPB ONE; -fentaNYL (PF) 50 MCG/ML 2 ML AMP IVP PRN
[2020-05-22] MEDS ORDERED: ONDANSETRON 4 MG/2 ML VIAL ONE (07:51)
[2020-05-22] MEDS ORDERED: LIDOCAINE 1% (10MG/ML) FOR IV START SQ ONE (08:11)
[2020-05-22] MEDS ORDERED: MIDAZOLAM 2 MG/2 ML VIAL IV ONE (08:29)
[2020-05-22] MEDS ORDERED: fentaNYL (PF) 50 MCG/ML 2 ML AMP IV ONE (08:29)
[2020-05-22] MEDS ORDERED: LIDOCAINE 1% INJ 10MG/ML (20 ML MDV) ONE (09:18)
[2020-05-22] MEDS ORDERED: ROPIVACAINE 5 MG/ML 30 ML VIAL ONE (09:18)
[2020-05-22] MEDS ORDERED: PHENYLEPHRINE-0.9% NACL SYG 1 MG/10 ML SYRINGE ONE (09:18)
[2020-05-22] MEDS ORDERED: fentaNYL (PF) 50 MCG/ML 2 ML AMP ONE (09:18)
[2020-05-22] MEDS ORDERED: MIDAZOLAM 2 MG/2 ML VIAL ONE (09:18)
[2020-05-22] MEDS ORDERED: ePHEDrine SULFATE/0.9% NACL/PF 50 MG/5 ML SYRINGE IV ONE (09:18)
[2020-05-22] MEDS ORDERED: SUCCINYLCHOLINE CHLORIDE 100 MG/5 ML SYR IV ONE (09:18)
[2020-05-22] MEDS ORDERED: PROPOFOL 10 MG/ML 20 ML VIAL IV ONE (09:18)
[2020-05-22 11:01] VITALS: TEMP 97.4
--- NOTE | 2020-05-22 11:02 | P.OP ---
Date of Procedure: 05/22/20 Preoperative Diagnosis: Left shoulder impingement Postoperative Diagnosis: 1. Left shoulder rotator cuff tear 2. Left shoulder impingement 3. Left shoulder acromioclavicular joint osteoarthritis 4. Left shoulder partial long head biceps tendon tear Procedure(s) Performed: 1. Left shoulder arthroscopic rotator cuff repair 2. Left shoulder arthroscopic subacromial decompression 3. Left shoulder arthroscopic Xenia procedure 4. Left shoulder arthroscopic biceps tenotomy Implants: 15.5 Arthrex swivel lock Anesthesia: GETA, regional (Interscalene) Surgeon: Naren Vann Paperhanger Pipe #1: Torrey Davis Estimated Blood Loss (ml): 8 Pathology: none sent Condition: stable Disposition: PACU Indications for Procedure: 54-year-old patient seen with progressive left shoulder pain. After treatment options were discussed, she elected to proceed with arthroscopy. Operative Findings: She description of procedure Description of Procedure: Patient underwent an interscalene block by department of anesthesia. The patient was then taken to the operative suite. The patient underwent a general anesthetic by the department of anesthesia. The patient was placed into a lateral position and secured. There was appropriate padding of the bony prominence. Left shoulder was then prepped and draped in normal sterile orthopedic fashion. We placed the extremity in 10 pounds of longitudinal traction. A posterior incision was now made for a posterior working portal site. The trocar and cannula were inserted into the glenohumeral joint. Arthroscopy was initiated. Spinal needle was now inserted anteriorly, to ascertain the anterior working portal site. An incision was now made in that area, a trocar was inserted followed by a probe. There was some mild fraying of the anterior labrum. There were some grade 1 chondromalacia changes of the glenoid but no osteochondral tears. There was some hyperemia and partial tearing long head biceps tendon. I performed an arthroscopic biceps tenotomy. I debrided the area fraying along the labrum. The residual labrum was probed and found to be stable. Instruments were now removed from glenohumeral joint. Utilizing the posterior working portal site, the trocar and cannula were inserted into the subacromial space. Arthroscopy initiated. I made an incision 2 fingerbreadths lateral to the acromion. I introduced my trocar followed by my ArthroCare ablator. I now began ablating thick subacromial bursal tissue, which exposed the undersurface of the anterior acromion. There was diminished subacromial space. There was a very prominent anterior acromion. A motorized bur was introduced and a subacromial decompression was performed. I also excised some osteophytes off the inferior aspect of the distal clavicle. The AC joint was visualized and noted to be fairly arthritic. The motorized bur was introduced in the anterior portal site and a Xenia procedure was performed without difficulty, decompressing the AC joint nicely. I turned my attention to the rotator cuff. There was an obvious full-thickness tear along the distal supraspinatus. I debrided the margins getting down to stable tendon tissue. The defect measured 1.5 cm. I abraded the footprint with a motorized bur. With the assistance of Daniel FISCHER I passed 2 everted mattress sutures through good bites of rotator cuff tendon. I now punched a hole in the footprint area for insertion of an anchor. I now passed all 4 limbs of suture through the eyelet of a 4.75 Arthrex swivel lock anchor. I now placed the eyelet into the pre-punch hole and held it there while Daniel FISCHER tensioned all sutures and deployed the anchor with good fixation noted. All residual suture limbs were now clipped. We had good compression of the tendon along the entire footprint. I injected 1 mL Renyte intra-articular. Instruments now removed from the portal sites. All portal sites were approximated with nylon suture. Sterile dressings were applied followed by a shoulder sling. Torrey FISCHER assisted in this complex case. The patient was awakened, transferred to a bed, and taken to recovery in stable condition.
--- NOTE | 2020-05-22 11:31 | P.ANPRN ---
Procedure Note - Anesthesia - Nerve Block Performed Left Interscalene Single Time Out Performed: Yes ([id number]) Date of Procedure: 05/22/20 Procedure Start Time: Procedure Stop Time: : Location of Patient: PreOp Indication: Acute Post-Operative Pain, Requested by Surgeon Specifically requested for management of pain by DrJose Roberto: Naren Vann Sedation Type: Sedate with meaningful contact maintained Preparation: Sterile Prep Position: Supine Catheter: None Needle Types: Pajunk Needle Gauge: 21 Ultrasound used to visualize needle placement: Yes Ultrasound used to observe medication spread: Yes Injectate: 0.5% Ropivacaine (see comment for volume) (30cc) Blood Aspirated: No Pain Paresthesia on Injection Noted: No Resistance on Injection: Normal Image Stored and Saved: Yes Events: Uneventful and Well Tolerated
[2020-05-22] MEDS ORDERED: LACTATED RINGERS 1,000 ML IV ONE (11:43)
[2020-05-22] MEDS ORDERED: HYDROcodone/APAP 7.5-325MG 1 EACH TAB ONE (11:54)
[2020-05-22] MEDS ORDERED: HYDROcodone/APAP 7.5-325MG 1 EACH TAB PO ONE (11:56)
[2020-05-22 12:06] VITALS: BP 112/64; PULSE 75; RESP 18
== END 2020-05-22 12:56 | disposition home health service (06) ==
LOC: OR 07:36
PROVIDERS: ATTEND Orthopaedic Surgery
DX: M75.122 Complete rotator cuff tear or rupture of left shoulder, not specified as traumatic (principal); M25.812 Other specified joint disorders, left shoulder; M19.012 Primary osteoarthritis, left shoulder; S46.112A Strain of muscle, fascia and tendon of long head of biceps, left arm, initial encounter; M94.212 Chondromalacia, left shoulder; M25.712 Osteophyte, left shoulder; I10 Essential (primary) hypertension; F32.9 Major depressive disorder, single episode, unspecified; M79.7 Fibromyalgia; F17.210 Nicotine dependence, cigarettes, uncomplicated; G43.909 Migraine, unspecified, not intractable, without status migrainosus; E78.5 Hyperlipidemia, unspecified; J44.9 Chronic obstructive pulmonary disease, unspecified; Z86.69 Personal history of other diseases of the nervous system and sense organs; Z88.6 Allergy status to analgesic agent; Z98.890 Other specified postprocedural states; Z90.710 Acquired absence of both cervix and uterus; Z96.652 Presence of left artificial knee joint; Z79.899 Other long term (current) drug therapy; Z79.891 Long term (current) use of opiate analgesic; Z79.1 Long term (current) use of non-steroidal anti-inflammatories (NSAID); Z91.19 Patient's noncompliance with other medical treatment and regimen; X58.XXXA Exposure to other specified factors, initial encounter
CPT/HCPCS: 64415; 76942; 29827; 29826; 29824; C1713 ×2; Q4212; J2250; J1100; J0690; J2405; J2001; J3010; J2795; J2370; J0330; J2704

== ENCOUNTER → 2020-08-15 | Outpatient (CLI) | payer MEDICARE, OTHER | END | disposition home or self-care (01) | LOC: LABWHC1 13:52 | PROVIDERS: ATTEND Family Medicine | DX: Z20.828 Contact with and (suspected) exposure to other viral communicable diseases (principal) | CPT/HCPCS: U0003; C9803 ==

== ENCOUNTER → 2021-04-21 | Outpatient (CLI) | payer MEDICARE, OTHER ==
--- NOTE | 2021-04-23 11:48 | MM ---
Reason for exam: screening (asymptomatic). Last mammogram was performed 5 years and 10 months ago. History: Patient is postmenopausal. Family history of breast cancer in grandmother at age 70. Took hormonal contraceptives for 6 years. Physical Findings: A clinical breast exam by your physician is recommended on an annual basis and results should be correlated with mammographic findings. MG 3D Screening Mammo W/Cad Bilateral CC and MLO view(s) were taken. Prior study comparison: June 24, 2015, bilateral MG screening mammo w CAD. April 10, 2014, bilateral MG screening mammo w CAD. There are scattered fibroglandular densities. Bilateral axillary tail lymph node benign appearing. Benign appearing bilateral calcifications. No significant changes when compared with prior studies. ASSESSMENT: Benign, BI-RAD 2 RECOMMENDATION: Routine screening mammogram of both breasts in 1 year.
== END | disposition home or self-care (01) ==
LOC: RADMAMWWP 16:09
PROVIDERS: ATTEND Family Medicine
DX: Z12.31 Encounter for screening mammogram for malignant neoplasm of breast (principal); Z78.0 Asymptomatic menopausal state; Z80.3 Family history of malignant neoplasm of breast
CPT/HCPCS: 77063; 77067

== ENCOUNTER → 2021-04-21 | Outpatient (CLI) | payer MEDICARE, OTHER ==
--- NOTE | 2021-04-22 09:00 | CTL ---
EXAMINATION TYPE: CT Low Dose Lung DATE OF EXAM ORDERED: 04/21/2021 COMPARISON: None HISTORY: . Low Dose CT Lung Screening CT DLP: 93.[address] CTDI: 2.6 mGy IV CONTRAST USED: None. SCREENING VISIT: First visit COMPARISON: None. TECHNIQUE: Low dose computed tomography scan was performed through the chest at 1 millimeter thick se ctions and reconstructed images in the coronal plane at [address] DIAGNOSTIC QUALITY: Satisfactory FINDINGS: LUNG NODULES: Not presentLeft lung: no nodules identified.Right lung: no nodules identified. LUNGS: COPD: Severity: None Fibrosis: Severity:None Lymph nodes: None Other findings: None RIGHT PLEURAL SPACE: Effusion: None Calcification: None Thickening: None Pneumothorax: None LEFT PLEURAL SPACE: Effusion: None Calcification: None Thickening: None Pneumothorax: None HEART: Heart Size: Mildly enlarged Coronary calcification: Mild Pericardial effusion: None OTHER FINDINGS: Upper abdomen: No significant abnormality Bony thorax: Degenerative changes Supraclavicular region: No significant abnormalityOther: No significant abnormalityI IMPRESSION: Benign FOLLOW UP CT CHEST RECOMMENDATION: Follow-up screening in one year CT LUNG RAD: LUNG RAD CATEGORY negative category 1
== END | disposition home or self-care (01) ==
LOC: RADCTMAIN 16:51
PROVIDERS: ATTEND Family Medicine
DX: Z12.2 Encounter for screening for malignant neoplasm of respiratory organs (principal)
CPT/HCPCS: 71271

== ENCOUNTER → 2021-06-14 | Outpatient (CLI) | payer MEDICARE, OTHER ==
--- NOTE | 2021-06-15 03:54 | MR ---
EXAMINATION TYPE: MR angio head wo con DATE OF EXAM: 06/14/2021 COMPARISON: None HISTORY: Hearing humming makes her dizzy, headaches, hearing loss left ear. MR angiographic images were obtained of the intracerebral arterial circulation without contrast. There is arterial flow in the anterior middle and posterior cerebral arteries. There is arterial flow in both distal internal carotid arteries. There is arterial flow in the vertebrobasilar artery syste m. There is no significant flow demonstrated in the posterior communicating arteries. There is no mass effect. There is no evidence of intracranial aneurysm or neovascularity. I see no ev idence of intracranial arterial stenosis. There is no evidence of arterial dissection. IMPRESSION: Normal MR angiogram of the brain.
--- NOTE | 2021-06-15 04:01 | MR ---
EXAMINATION TYPE: MR brain wo/w con DATE OF EXAM: 06/14/2021 COMPARISON: None HISTORY: Hearing humming makes her dizzy, headaches, hearing loss left ear. CONTRAST: Standard multiplanar, multisequence MRI departmental protocol utilizing 11 mL intravenous Gadavist ga dolinium contrast. Diffusion images show no evidence of an acute infarct. Ventricles have normal size. There is no mass effect nor midline shift. There is no sign of intracran ial hemorrhage. The calvarium is intact. There is no evidence of cerebral edema. Bradley-white matter st ructures have fairly normal signal pattern. There is no evidence of cerebral edema. Corpus callosum appears intact. Sella turcica appears normal. Brainstem is intact. There is no eviden ce of orbital mass. There is normal contrast opacification of the venous sinuses. There is no pathologic enhancement. IMPRESSION: MR scan of the brain is within normal limits.
== END | disposition home or self-care (01) ==
LOC: RADMRIMAIN 14:13
PROVIDERS: ATTEND Otolaryngology
DX: R42 Dizziness and giddiness (principal); R51.9 Headache, unspecified; H91.92 Unspecified hearing loss, left ear
CPT/HCPCS: 70544; 70553; A9585

== ENCOUNTER → 2023-06-01 | Outpatient (CLI) | payer MEDICARE, OTHER ==
--- NOTE | 2023-06-01 14:51 | CTL ---
EXAMINATION TYPE: CT Low Dose Lung DATE OF EXAM: 06/01/2023 2:39 PM CLINICAL INDICATION:Female, 57 years old with history of Z12.2 SCREEN MALIGN NEOPLASM F17.210 HX SMOK ER; current smoker, 1 pack a day x40 years , history of tobacco use. COMPARISON: 04/13/2021 TECHNIQUE: Multiple axial non-contrast scans were obtained from approximately the lung apices through the upper abdomen. Coronal and sagittal reformatted images were obtained. Low dose technique was uti lized. CT DLP: 140.40 mGycm, Automated exposure control for dose reduction was used. CT Contrast: Contrast used: None Oral contrast used: None FINDINGS: ======== Lack of intravenous contrast and low dose technique limits the evaluation of the vascular and soft ti ssue structures. LUNGS: No evidence of pulmonary fibrosis. No evidence of focal consolidation, pneumothorax or pleural effusion. Mild centrilobular emphysema changes. Mild paraseptal emphysema changes. Nodules: RUL: None. RML: Calcified granuloma series 4 image 212. RLL: None. NICHOLAS: None. LLL: None. AIRWAY: Patent and unremarkable. HEART: Size within normal limits. MEDIASTINUM: No gross evidence of adenopathy. VASCULATURE: Atherosclerotic calcifications are present throughout the aorta and its branches. MUSCULOSKELETAL: No acute osseous abnormalities SOFT TISSUES/LYMPH NODES: Unremarkable. LOWER NECK: No significant findings. UPPER ABDOMEN: No significant findings. IMPRESSION: 1. No clinically significant pulmonary nodules. 2. Mild emphysema changes. CT LUNG RAD AND CT CHEST RECOMMENDATION: Lung-Rad 2 Benign Appearance or Behavior: Continue annual sc reening with LDCT in 12 months. S Modifier (other clinically significant findings): None Recommend smoking cessation (if current smoker), or continuation of smoking cessation (if prior smoke r). Annual screening for lung cancer with low-dose computed tomography is recommended in adults ages 55 to 77 years who have a 30 pack-year smoking history and currently smoke or have quit within the pa st 15 years. Screening should be discontinued once a person has not smoked for 15 years or develops a health problem that substantially limits life expectancy or the ability or willingness to have curat shikha lung surgery. Lung rads 2021 [email or web address]
== END | disposition home or self-care (01) ==
LOC: RADCTMAIN 14:16
PROVIDERS: ATTEND Family Medicine
DX: Z12.2 Encounter for screening for malignant neoplasm of respiratory organs (principal); J43.2 Centrilobular emphysema; F17.210 Nicotine dependence, cigarettes, uncomplicated
CPT/HCPCS: 71271

== ENCOUNTER → 2023-09-06 | Outpatient (CLI) | payer MEDICARE, OTHER ==
--- NOTE | 2023-09-06 19:05 | MR ---
EXAMINATION TYPE: MR lumbar spine wo con DATE OF EXAM: 09/06/2023 5:03 PM CLINICAL INDICATION:Female, 57 years old with history of M54.17 RADICULOPATHY, LUMBOSACRAL REGION; PH H, Low back pain into Left hip and leg, difficulty walking, sitting and laying on side COMPARISON: None TECHNIQUE: Multi planar, multi sequence imaging was performed utilizing: T1-weighted, T2-weighted, a nd turbo inversion recovery imaging of the lumbar spine. IV Contrast: cc . (None if empty) FINDINGS: Alignment: The lumbar vertebral bodies have preserved heights with grade 1 anterolisthesis of L4 on L 5. Cord: The conus medullaris and the distal spinal cord appear unremarkable with regards to their signa l intensity and morphology. Bones/Discs: Mild degeneration changes throughout the spine with osteophyte formation and facet joint arthropathy. Intervertebral disc signal is maintained. T12-L1: Central disc extrusion with 5 mm superior migration which impresses of upon the spinal cord s lightly. Spinal cord signal is maintained. Mild bilateral neural foraminal stenosis. L1-L2: No evidence of significant spinal canal stenosis or neural foraminal stenosis. L2-L3: No evidence of significant spinal canal stenosis or neural foraminal stenosis. L3-L4: No evidence of significant spinal canal stenosis or neural foraminal stenosis. L4-L5: Disc uncovering from grade 1 anterolisthesis and facet joint arthropathy with mild spinal rené l stenosis and mild bilateral neural foraminal stenosis. L5-S1: The disc is rounded posterior morphology without significant spinal canal stenosis. Facet join t arthropathy with mild bilateral neural foraminal stenosis. No significant spinal canal or neural foraminal stenosis in the remainder of the visualized levels. Other findings: None. IMPRESSION: 1. T12-L1 central disc extrusion with superior migration. This mildly impresses upon the spinal cord . Cord signal is maintained. 2. Grade 1 anterolisthesis of L4 and L5.
== END | disposition home or self-care (01) ==
LOC: RADMRIMAIN 16:14
PROVIDERS: ATTEND Family Medicine
DX: M43.16 Spondylolisthesis, lumbar region (principal); M51.15 Intervertebral disc disorders with radiculopathy, thoracolumbar region
CPT/HCPCS: 72148

== ENCOUNTER → 2023-11-15 | Outpatient (CLI) | payer MEDICARE, OTHER ==
[2023-11-15 14:44] VITALS: BP 180/114; PULSE 78; RESP 15; TEMP 98.6
--- NOTE | 2023-11-15 15:04 | P.PAINPG ---
PQRS Measure Charge Sheet Comment: HISTORY OF PRESENT ILLNESS: A 58 yr old female as a referral from Dr Larkin presents today w severe and chronic LBP x 1 yr secondary to DDD, spondylosis and facet arthropathy without myelopathy for evaluation. Pt states pain level is provoked at 7 /10 in intensity, constant, localized in the lower lumbar spine, predominantly axial, burning in character w occasional shooting pain towards the BLEs. Pain is provoked by sitting or cold weather. Pain is alleviated by chiropractic treatments semi monthly since Fall 2022 which she is currently in, heat, medications (Lyrica, Ibu), repositioning and rest. Oswestry axial pain score at 28. She states she wants Lyrica, has 1 refill left, but her GFR is low and was discontinued. No BUN/Cr or GFR labs on her e-chart here. Called [facility] whom stated she has 2 refills remaining. PMH: OA Fibromyalgia, Hyperlipidemia, HTN, Migraines PSH: L Shoulder Arthroplasty (2019), BL Knee Arthroscopy, Sinus Surgery, Colonoscopy, CTR, Cervical Surgery (2015), Cryosurgery, Bowel Repair, Hysterectomy SH: 40 pack/ yr daily tobacco use, Occasional ETOH use, FH: Fa- Bladder CA/ Factor VIII. Mo- No Reported History All: See list Meds: See list REVIEW OF ORGAN SYSTEMS: CONSTITUTIONAL: No fevers or chills. No recent weight loss. NEUROLOGICAL: + numbness and tingling along the distal extremities. No seizure disorders or headaches. MUSCULOSKELETAL: + pain PSYCHIATRIC: Denies current depression or suicidal thoughts. Physical Examinations : Constitutional : Cooperative , not in acute distress . Neurologic : Cranial nerve II to XII intact. No focal neurological deficits. Psychiatric : alert & oriented x 3. Matching mood & appropriate affect. Judgment & insight intact. Musculoskeletal : Cervical Spine Motor strength in the deltoid and biceps: Normal right side. Normal Left side Motor strength biceps and the wrist extensors: Normal right side . Normal left side Motor strength in the triceps muscle: Normal right side. Normal left side Deep tendon reflexes: Normal at the biceps. Normal at Brachioradialis. Normal at triceps Vertebral body tenderness to deep palpation over Cervical facet loading test: positive bilaterally Spurling test: positive bilaterally Neck distraction test: positive bilaterally Reji sign: positive bilaterally Lumbar spine Motor strength lower extremities ,thigh and legs 5/5 Right side , 5/5 Left side Deep tendon reflexes : Normal Knee Jerk. Normal Ankle Jerk Vertebral body tenderness over L4 Arguello Test positive Lumbar facet Loading Test: positive Right / positive Left Range of motion of the lumbar spine Flexion 30 degrees, extension 10 degrees Straight Leg Raise test: Left/ Right positive at <35 degrees Viri test: positive right / positive left. Severe tenderness over the Sacroiliac joint on the Right / Left sides Gaenslen test: positive bilaterally Seated flexion test: positive bilaterally. Sacral spine : Severe tenderness over the Sacroiliac joint: right side / left side Range of motion: Flexion of the lumbar spine <60 degrees Range of motion: Extension of the lumbar spine <20 degrees Gaenslen's Test positive Viri test: positive right side / left side Thigh Thrust Test Sacral Thrust Test Imaging: MRI noncontrast of the lumbar spine from 09/06/23 reviewed Assessment/ Plan : L4-L5 anterolisthesis Pt is established at Dr Crowley's office for ESIs and disinterested in any other injections at this time. Discussed that she may be a surgical candidate and to follow up w an orthopedic surgeon for additional treatment options. Discussed that this hospital based anesthesia clinic is primarily for interventional pain management. All questions answered. I have spent greater than 30 minutes on patient care today. Dr Baker was available by phone for the evaluation of this patient. The time was used to review the medical records including relevant urine studies and Prescription history (MAPs), review of the available imaging, evaluation and examination of the patient, coordination of care with the medical staff and if applicable referring physicians, as well as creation of the medical record PQRS Narrative: Smoking Status Current every day smoker Home Medications: Ambulatory Orders Montelukast [Singulair] 10 mg PO QAM 02/18/15 Pregabalin [Lyrica] 100 mg PO BID 02/18/15 Albuterol Inhaler [Ventolin Hfa Inhaler] 1 - 2 puff INHALATION Q6HR PRN 12/07/16 Azelastine HCl [Astepro] 1 spray NASAL BID PRN 05/26/18 Cetirizine HCl [Zyrtec] 10 mg PO HS 05/26/18 Mupirocin 2% Oint [Bactroban 2% Oint] 1 applic TOPICAL BID PRN 05/26/18 Nystatin 100,000 Unit/gm Powd [Mycostatin Powder] 1 applic TOPICAL DAILY 05/26/18 Olopatadine HCl [Pataday] 1 drop BOTH EYES DAILY 05/26/18 Triamcinolone Acetonide [Nasacort] 1 spray EA NOSTRIL DAILY 05/26/18 Cyclobenzaprine [Flexeril] 5 mg PO DAILY PRN 08/03/19 Irbesartan [Avapro] 75 mg PO DAILY 08/03/19 Mucinex Cough And Chest 1 tab PO TID PRN 08/03/19 Butalbital/Aspirin/Caffeine [Sfczdc-Xngeabw-Lltorhrs 50-325-40 mg] 1 tab PO DAILY PRN 05/20/20 Fesoterodine Fumarate [Toviaz] 8 mg PO HS 05/20/20 Fexofenadine HCl 180 mg PO DAILY 05/20/20 HYDROcodone/APAP 7.5-325MG [[place] 7.5-325] 1 tab PO Q8H PRN 05/20/20 Ibuprofen [Motrin] 600 mg PO DAILY PRN 05/20/20 Multivitamins, Thera [Multivitamin (formulary)] 1 tab PO DAILY 05/20/20 Ibuprofen 800 mg PO Q8H PRN #30 tab 05/22/20 Controlled Substance Measures - Controlled Substance Measures Is patient prescribed a controlled substance at discharge?: No
== END ==
LOC: PNWHC3 13:59
PROVIDERS: ATTEND Specialist
DX: M43.16 Spondylolisthesis, lumbar region (principal); F17.200 Nicotine dependence, unspecified, uncomplicated; Z88.6 Allergy status to analgesic agent
CPT/HCPCS: 99211

== ENCOUNTER → 2024-04-21 | Outpatient (CLI) | payer MEDICARE, OTHER ==
--- NOTE | 2024-04-22 01:20 | MR ---
EXAMINATION TYPE: MR thoracic spine wo con DATE OF EXAM: 04/21/2024 COMPARISON: CT low-dose lung screening June 01, 2023 HISTORY: Mid back pain TECHNIQUE: Multiplanar, multisequence imaging of thoracic spine is performed without contrast FINDINGS: Formal images show slight scoliotic curvature. Spinal cord shows normal caliber and signal as it courses the thoracic spine. Vertebral body heights and disc space heights are maintained. Mi [id number] multilevel anterior spurring is present. Sagittal images show multilevel small posteri or disc herniation mildly effacing anterior thecal sac, findings are most prominent at T5-T6 through the T12-L1 level seen best on sagittal images 8 and 9. Bone marrow signal intensity is preserved. Review of the axial images shows some larger disc herniation at T10-T11 and T12-L1 level effacing the anterior thecal sac. Visualized lungs are grossly clear. IMPRESSION: Multilevel degenerative changes in the thoracic spine as detailed above.
== END | disposition home or self-care (01) ==
LOC: RADMRIMAIN 21:15
PROVIDERS: ATTEND Physical Medicine & Rehabilitation
DX: M47.814 Spondylosis without myelopathy or radiculopathy, thoracic region (principal); M47.816 Spondylosis without myelopathy or radiculopathy, lumbar region; M47.895 Other spondylosis, thoracolumbar region; M54.16 Radiculopathy, lumbar region; S22.060A Wedge compression fracture of T7-T8 vertebra, initial encounter for closed fracture; M47.817 Spondylosis without myelopathy or radiculopathy, lumbosacral region; M48.062 Spinal stenosis, lumbar region with neurogenic claudication; M51.26 Other intervertebral disc displacement, lumbar region; M51.25 Other intervertebral disc displacement, thoracolumbar region
CPT/HCPCS: 72146

== ENCOUNTER → 2024-09-08 | Outpatient (CLI) | payer MEDICARE, OTHER ==
--- NOTE | 2024-09-08 15:29 | CTL ---
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 TECHNIQUE: Low dose computed tomography scan was performed through the chest at 1 mm thick sections a nd reconstructed images in multiple planes at 1 mm and [address] DLP: 89.[address] CTDI: 2.4 mGy Automated exposure control for dose reduction was used. CT DIAGNOSTIC QUALITY: Limited, but interpretable FINDINGS: Nodules: No clinically significant pulmonary nodules. LUNGS: COPD: Severity: Mild Fibrosis: Severity: None Lymph nodes: None Other findings: None RIGHT PLEURAL SPACE: Effusion: None Calcification: None Thickening: None Pneumothorax: None LEFT PLEURAL SPACE: Effusion: None Calcification: None Thickening: None Pneumothorax: None HEART: Heart Size: Normal Coronary Calcification: Mild to moderate Pericardial Effusion: None OTHER FINDINGS: Upper abdomen: None Bony thorax: Mild multilevel degenerative disc disease. Supraclavicular region: None Other: None IMPRESSION: 1. No clinically significant pulmonary nodules. 2. Mild COPD changes. CT LUNG RAD AND CT CHEST RECOMMENDATION: Lung-Rad 1 Negative: Continue annual screening with LDCT in 12 months. S Modifier (other clinically significant findings): None [facility], , 09/08/2024 3:26 PM
== END | disposition home or self-care (01) ==
LOC: RADCTMAIN 14:58
PROVIDERS: ATTEND Family Medicine
DX: Z12.2 Encounter for screening for malignant neoplasm of respiratory organs (principal); J44.9 Chronic obstructive pulmonary disease, unspecified; F17.210 Nicotine dependence, cigarettes, uncomplicated
CPT/HCPCS: 71271

== ENCOUNTER → 2024-11-09 | Outpatient (CLI) | payer MEDICARE, OTHER | END | disposition home or self-care (01) | LOC: LABWHC1 16:14 | PROVIDERS: ATTEND Orthopaedic Surgery | DX: M25.562 Pain in left knee (principal); M79.7 Fibromyalgia; F17.210 Nicotine dependence, cigarettes, uncomplicated; T84.84XA Pain due to internal orthopedic prosthetic devices, implants and grafts, initial encounter | CPT/HCPCS: 36415; 84681; 85379; 85652; 86140 ==

== ENCOUNTER → 2024-11-27 | Outpatient (CLI) | payer MEDICARE, OTHER ==
[2024-11-27 16:57] LABS: HCT 41.6 % (37.2-46.3); HGB 13.6 g/dL (12.0-15.0); MCH 31.1 pg (27.0-32.0); MCHC 32.7 g/dL (32.0-37.0); Mean Platelet Volume 10.5 FL (9.5-12.2); NRBC Per 100 WBC 0 X 10*3/uL (0.00-0.01); Platelet Count 385 X 10*3/uL (140-440); RBC 4.38 X 10*6/uL (4.10-5.20); RDW 12.4 % (11.5-14.5)
[2024-11-27 18:38] LABS: ALT 31 U/L (8-44); AST 28 U/L (13-35); Albumin 4.1 g/dL (3.8-4.9); Albumin/Globulin Ratio 2.05 Ratio (1.60-3.17); Alkaline Phosphatase 51 U/L (41-126); BUN/Creat Ratio 16.38 Ratio (12.00-20.00); Blood Urea Nitrogen 13.1 mg/dL (9.0-27.0); Calcium 9.1 mg/dL (8.7-10.3); Carbon Dioxide 21.9 mmol/L (21.6-31.8); Chloride 107 mmol/L (96-109); Chol/HDL Ratio 3.22 Ratio; Glucose 103 mg/dL (70-110); LDL Cholesterol,Calculated 38.3 mg/dL (0.0-131.0); Sodium 141 mmol/L (135-145); Total Bilirubin 0.4 mg/dL (0.3-1.2); Total Protein 6.1 g/dL (6.2-8.2)
[2024-11-27 19:09] LABS: NT-Pro-B-Type Natriuretic Pept 133 pg/mL (0-125)
== END | disposition home or self-care (01) ==
LOC: LABWHC1 11:25
PROVIDERS: ATTEND Student in an Organized Health Care Education/Training Program
DX: I13.0 Hypertensive heart and chronic kidney disease with heart failure and stage 1 through stage 4 chronic kidney disease, or unspecified chronic kidney disease (principal); I50.9 Heart failure, unspecified; E11.22 Type 2 diabetes mellitus with diabetic chronic kidney disease; N18.9 Chronic kidney disease, unspecified
CPT/HCPCS: 36415; 80053; 80061; 83036; 83880; 84443; 85027

== ENCOUNTER → 2025-01-04 | Outpatient (CLI) | payer MEDICARE, OTHER ==
[2025-01-04 14:57] VITALS: BP 134/78; PULSE 74; RESP 16; TEMP 98.5
--- NOTE | 2025-01-04 15:46 | P.SLEEP ---
History of Present Illness DATE: 01/04/2025 CONSULTATION/NEW PATIENT EVALUATION HISTORY OF PRESENT ILLNESS/SLEEP-WAKE EVALUATION: 59-year-old lady had been e valuated in the sleep center for possible obstructive sleep apnea hypopnea syndrome. Patient has history of obstructive sleep apnea. Home sleep apnea test in 2018 showed apnea hypopnea index 20.5 with oxygen saturation of 74%. Patient was on treatment with CPAP but for short period of time. SLEEP SCHEDULE: Usually sleep schedule from 1011 PM to 78 AM. FALLING ASLEEP: Problems with falling asleep. DURING SLEEP: Patient wakes up from sleep 4 times with up to 3 episodes of nocturia. Positive history of dry mouth. No history of hypnogogical hallucinations, sleep paralysis, or cataplexy. DURING THE DAY/WAKE STATE: In the morning patient wake up tired, has problems with memory. Haskell sleepiness scale is increased to 11. Patient may take 1-2 naps a day. PAST MEDICAL HISTORY: Hypertension, asthma, fibromyalgia. PAST SURGICAL HISTORY: Tonsillectomy and adenoid ectomy, UPPP. MEDICATIONS: Have been reviewed, please see below. SOCIAL HISTORY: Please see below. FAMILY HISTORY: Please see below. REVIEW OF SYSTEMS: Multiple awakenings from sleep, sleepiness during the day. No fevers. No double vision. No recent chest pain. No shortness of breath. No abdominal pain. No bleeding episodes. No blood in urine. No seizure episodes. PHYSICAL EXAMINATION: GENERAL: A pleasant patient without any distress. VITAL SIGNS: Please see below, weight 255 pounds, BMI 41.7. HEENT: PERRLA, EOMI. Evaluation of oropharynx showed tongue protrudes midline, low position of soft palate Mallampati 4. NECK: Supple. No JVD. Thyroid is not palpable. 17 inches in circumference. LUNGS: Clear to percussion and to auscultation. Good air exchange. No wheezing or rhonchi. HEART: S1, S2 regular. No murmurs, gallops or rubs. ABDOMEN: Soft and nontender. Bowel sounds are present. No organomegaly appreciated. EXTREMITIES: No clubbing or cyanosis. VENEER SORTER: Awake, alert, and oriented x3. Cranial nerves 2 to 7 intact. There is no fasciculation or atrophy noted. No focal deficits observed. ASSESSMENT: 1. Multiple awakenings from sleep, extremely low position of soft palate Mallampati 4 neck 17 inches in circumference, sleepiness, history of obstructive sleep apnea in the past. Obstructive sleep apnea hypopnea syndrome. 2. Obesity, BMI 41.7. 3. Hypertension. 4. History of asthma. 5 fibromyalgia. 6 . Status post tonsillectomy, adenoidectomy, UPPP and tongue reduction surgery . PLAN: 1. Home sleep apnea test for evaluation of patient's breathing during sleep. 2. Following plan after reading sleep study. 3. Preferable position during sleep on the side. 4. No driving if patient feels any sleepiness. Patient is aware of civil and criminal liability for unsafe driving. 5. Sleep hygiene with regular sleep time for at least 7.5-8 hours. 6. Watching and losing weight. Thank you very much for referring this patient for consultation. Sincerely, Nehemias Schmidt MD, PhD, FAASM. Diplomat of [employer], Sleep Medicine Board by [employer] Traffic Engineer of [facility] [place] cc: Lonnie Larkin DO Past Medical History Past Medical History: Fibromyalgia, Hyperlipidemia, Hypertension, Osteoarthritis (OA) Additional Past Medical History / Comment(s): MIGRAINES, ENVIRONMENTAL ALLERGIES., BACK PAIN, DIVERTICULOSIS., SORE ON HEAD-STATES NO DRAINAGE- HEALING., OAB., STATES KNEES GIVE OUT. History of Any Multi-Drug Resistant Organisms: None Reported Past Surgical History: Back Surgery, Hysterectomy, Orthopedic Surgery Additional Past Surgical History / Comment(s): Sinus surgery, arthroscopy both k nees, colonoscopy,carpal tunnel surgery. Neck surgery 2016. Cyrosurgery. , Bowel Repair. Past Anesthesia/Blood Transfusion Reactions: No Reported Reaction Past Psychological History: No Psychological Hx Reported Smoking Status: Current every day smoker Past Alcohol Use History: Occasional Additional Past Alcohol Use History / Comment(s): smokes 1 ppd, smoking for 40 years. Past Drug Use History: None Reported - Past Family History Father Family Medical History: Blood Disorder, Cancer, Diabetes Mellitus, Deep Vein Thrombosis (DVT), Hyperlipidemia, Osteoarthritis (OA) Additional Family Medical History / Comment(s): Bladder cancer, factor 8., lung problems Mother Family Medical History: Fibromyalgia, Hyperlipidemia, Osteoarthritis (OA), Sleep Apnea/CPAP/BIPAP Additional Family Medical History / Comment(s): high red blood cell count , nasal polyps, Insomnia, snoring Medications and Allergies Home Medications Medication Instructions Recorded Confirmed Type Montelukast [Singulair] 10 mg PO QAM 02/18/15 01/04/25 History Pregabalin [Lyrica] 100 mg PO BID 02/18/15 01/04/25 History Albuterol Inhaler [Ventolin Hfa 1 - 2 puff INHALATION Q6HR PRN 12/07/16 01/04/25 History Inhaler] Azelastine HCl [Astepro] 1 spray NASAL BID PRN 05/26/18 05/20/20 History Cetirizine HCl [Zyrtec] 10 mg PO HS 05/26/18 01/04/25 History Mupirocin 2% Oint [Bactroban 2% 1 applic TOPICAL BID PRN 05/26/18 01/04/25 History Oint] Nystatin 100,000 Unit/gm Powd 1 applic TOPICAL DAILY 05/26/18 01/04/25 History [Mycostatin Powder] Olopatadine HCl [Pataday] 1 drop BOTH EYES DAILY 05/26/18 01/04/25 History Triamcinolone Acetonide [Nasacort] 1 spray EA NOSTRIL DAILY 05/26/18 01/04/25 History Cyclobenzaprine [Flexeril] 5 mg PO DAILY PRN 08/03/19 05/22/20 History Irbesartan [Avapro] 75 mg PO DAILY 08/03/19 01/04/25 History Mucinex Cough And Chest 1 tab PO TID PRN 08/03/19 05/20/20 History Butalbital/Aspirin/Caffeine 1 tab PO DAILY PRN 05/20/20 05/22/20 History [Uphxxi-Yvfnrub-Htsfxxlb 50-325-40 mg] Fesoterodine Fumarate [Toviaz] 8 mg PO HS 05/20/20 05/20/20 History Fexofenadine HCl 180 mg PO DAILY 05/20/20 05/20/20 History HYDROcodone/APAP 7.5-325MG [[place] 1 tab PO Q8H PRN 05/20/20 05/20/20 History 7.5-325] Ibuprofen [Motrin] 600 mg PO DAILY PRN 05/20/20 05/20/20 History Multivitamins, Thera [Multivitamin 1 tab PO DAILY 05/20/20 01/04/25 History (formulary)] Ibuprofen 800 mg PO Q8H PRN #30 tab 05/22/20 Rx Bempedoic Acid/Ezetimibe [Nexlizet See Rx Instructions .ROUTE .COMPLEX 01/04/25 01/04/25 History 180-10 mg Tablet] Metoprolol Succinate [[place]apsp[place] 25 mg PO DAILY 01/04/25 01/04/25 History Sprinkle] Solifenacin Succinate 10 mg PO DAILY 01/04/25 01/04/25 History amLODIPine [Norvasc] 5 mg PO BID 01/04/25 01/04/25 History Allergies Allergy/AdvReac Type Severity Reaction Status Date / Time aspirin AdvReac Unknown Abdominal Verified 12/09/23 14:25 Pain Physical Exam Vitals: Vital Signs Temp Pulse Resp BP Pulse Ox 01/04/25 14:55 98.5 F 74 16 134/78 97 Sleep Note - Sleep Data ESS Total: 11 - Sleep Note Sleep Note: Temperature: 98.5 F Pulse Rate: 74 Respiratory Rate: 16 Blood Pressure: 134/78 SpO2: 97 Height: Weight: BMI: Neck Circumference: 17
== END ==
LOC: 3 N SLEEP 14:21
PROVIDERS: ATTEND Internal Medicine
DX: G47.33 Obstructive sleep apnea (adult) (pediatric) (principal); E66.9 Obesity, unspecified; I10 Essential (primary) hypertension; M79.7 Fibromyalgia; F17.210 Nicotine dependence, cigarettes, uncomplicated; Z68.41 Body mass index [BMI] 40.0-44.9, adult; Z90.89 Acquired absence of other organs; Z87.09 Personal history of other diseases of the respiratory system; Z88.6 Allergy status to analgesic agent
CPT/HCPCS: 99211

== ENCOUNTER 2025-02-15 19:51 | Outpatient (CLI) | payer MEDICARE, OTHER ==
--- NOTE | 2025-02-21 10:45 | P.PCN ---
Description of Procedure: POLYSOMNOGRAPHY REPORT PROCEDURE(S)/DATE(S): Polysomnography 02/11/2025 CLINICAL: Patient has been seen in the sleep center for evaluation of obstructive sleep apnea-hypopnea syndrome. Please see my consultation. Sleep study has been done for evaluation of patient breathing during the sleep. PROCEDURE: The standard montage for clinical polysomnography included the electroencephalogram, the electrooculogram, the mentalis surface electromyography and Lead II cardiography. The respiratory battery consisted of measurements of nasal/buccal air flow, pressure transducer measurements from nose, thoracic and/or abdominal effort and intercostal surface electromyography. Video monitoring has been done to check for any parasomnia events. Nocturnal oxyhemoglobin saturations were obtained by finger oximetry. Step-osborn titration with positive airway pressure was utilized to control the respiratory events, if necessary. RESULTS: During the diagnostic sleep study sleep efficiency was decreased to 76.9%. Latency to sleep onset was normal at 72.5 min. Sleep architecture showed stage NI was significantly increased to 19.7%, Delta sleep was absent 0%, REM sleep was in normal high range 28.5%. Respiratory channel showed 3 obstructive apneas, 0 mixed apneas, 2 central apneas, 93 hypopneas with lowest oxygen level 69%. Total apnea hypopnea index was 18.1. Heart rate was in the range between 61 and 80, average 68. EMG showed 1.1 periodic limb movements per hour with 0 micro-arousals per hour. IMPRESSIONS: 1. Moderate obstructive sleep apnea hypopnea syndrome. 2. No significant periodic limb movements have been documented. Please see other impressions from consultation PLAN: 1. The patient will have PAP titration for correction of respiratory abnormalities during the sleep. 2. Losing weight program. 3. Sleep hygiene with regular time in bed for at least 7-1/2 hours. 4. No driving if feeling sleepiness. Thank you very much for allowing me to participate in the management of your patient. Sincerely, Nehemias Schmidt MD, PhD, FAASM. Diplomat of [place] [employer], Sleep Medicine Board by [employer] [employer] Touring Production Manager of [facility] [place] cc: Lonnie Larkin DO
== END 2025-02-16 06:10 | disposition home or self-care (01) ==
LOC: 3 N SLEEP 19:51
PROVIDERS: ATTEND Internal Medicine
DX: G47.33 Obstructive sleep apnea (adult) (pediatric) (principal); F17.200 Nicotine dependence, unspecified, uncomplicated; Z88.6 Allergy status to analgesic agent
CPT/HCPCS: 95810